=== PATIENT | female | born 1985 | race Two or more races ===

== ENCOUNTER → 2016-03-03 | Day surgery (SDC) | payer OTHER ==
[~2016-03-03] VITALS: Ht 121.9 cm; Wt 44.0 kg
[~2016-03-03] MED LIST: ACETAMINOPHEN 1000 MG/100 ML VIAL IV ONE; ACETAMINOPHEN 325MG/HYDROcodone 7.5MG/15ML UDC GT PRN; ALBU0.63 NEB; ATEN25TA JT; ATEN25TA PO; BACL10TA GT; BACL10TA JT; BACT800T5 PO; BELLADONNA ALKALOIDS/OPIUM 60 MG SUPP ONE; CLON1TAB GT; CLON1TAB JT; DEXAMETHASONE SOD PHOS 4 MG/ML VIAL ONE; DICLOFENAC SODIUM 37.5 MG/ML VIAL IV PUSH ONE; DO NOT ADM ANY ANTICOAGULANT DRUGS XX PRN; FAMOTIDINE 20 MG/2 ML VIAL ONE; INFE50IN2 IM; INSULIN HUMAN REGULAR 1,000 UNITS/10 ML VIAL SQ PRN; IOHEXOL 350 MG/ML 50 ML BTL (for RAD DIAG) OTHER ONE; LACTATED RINGER'S 1000 ML INJ 1,000 ML IV ONE; LACTATED RINGER'S 1000 ML IV SCH; LEVA500T PO; METO10TA GT; METO10TA JT; METO50TA GT; METO5SOL J-TUBE; METOPROLOL TARTRATE 25 MG TAB PO PRN; MIDAZOLAM HCL 2 MG/2 ML VIAL ONE; MIRA33504 GT; MIRA33504 JT; MORPHINE SULFATE 4 MG/ML INJ IV PUSH PRN; ONDANSETRON HCL 4 MG/2 ML VIAL IV PUSH ONE; ONDANSETRON HCL 4 MG/2 ML VIAL IV PUSH PRN; PERC5TAB12 PO; PHEN-414 GT; PHEN-414 JT; PROPOFOL 200 MG/20 ML AMP IV ONE; RANI150C GT; RANI150T JT; SODIUM CHLORID 0.9% 500 ML IV SCH; SUGAMMADEX SODIUM 200 MG/2 ML VIAL IV PUSH ONE; VITA10004 GT; ceFAZolin 1,000 MG/NS 100 ML IV SCH; ePHEDrine/NS 50 MG/5 ML SYR IV ONE
[2016-03-03 09:00] VITALS: BP 98/66; PULSE 86; RESP 18; TEMP 97.7; O2SAT 96
[2016-03-03 09:26] LABS: BASOPHIL % 0.2 % (0.0-2.0); EOSINOPHIL # 0.2 TH/MM3 (0-0.4); EOSINOPHIL % 2.8 % (0.0-4.0); HEMATOCRIT 42.5 % (35.0-46.0); HEMO FLAGS DIFF FINAL; LYMPH % 20.8 % (9.0-44.0); LYMPHOCYTE # 1.3 TH/MM3 (1.0-4.8); MEAN CELL VOLUME 85.5 FL (80.0-100.0); MEAN CORPUSCULAR HEMOGLOBIN 28.3 PG (27.0-34.0); MEAN CORPUSCULAR HGB CONC 33.1 % (32.0-36.0); MONO % 10.7 % (0.0-8.0); NEUT % 65.5 % (16.0-70.0); PLATELET COUNT 137 TH/MM3 (150-450); RED BLOOD COUNT 4.97 MIL/MM3 (4.00-5.30); RED CELL DISTRIBUTION WIDTH 14.8 % (11.6-17.2); WHITE BLOOD COUNT 6.1 TH/MM3 (4.0-11.0)
[2016-03-03 09:49] LABS: BICARBONATE 22.5 MEQ/L (21.0-32.0); POTASSIUM 4.2 MEQ/L (3.5-5.1)
[2016-03-03 15:15] VITALS: BP 108/76; PULSE 97; RESP 18; TEMP 98.4; O2SAT 96
--- NOTE | 2016-03-09 06:39 | MP ---
cc: MADISON WINTERS DATE OF SURGERY March 03, 2016 PREOPERATIVE DIAGNOSIS Bilateral renal calculi with right ureteral calculi. POSTOPERATIVE DIAGNOSIS Bilateral renal calculi with right ureteral calculi. PROCEDURE Cystoscopy, right ureteroscopy with laser lithotripsy, stone extraction, bilateral double-J stent insertion and removal of right nephrostomy tube. SURGEON MD Lance ANESTHESIA General endotracheal tube FLUIDS 1 liter crystalloid. ESTIMATED BLOOD LOSS No blood loss. COMPLICATIONS No complications. SPECIMEN Multiple stone fragments were retrieved from both from both the right ureter and the right kidney. CONDITION She tolerated the procedure well. She was awoken and transferred to the recovery room in stable condition. INDICATIONS Ms. Titus Yarbrough is a 30-year-old female with a history of cerebral palsy. She had bilateral renal calculi and has undergone multiple ESWL therapies in the past to try to relieve her stone burden. She required percutaneous right nephrostomy tube with nephroureteral stent in place and that has been in for sometime to alleviate her obstruction. She has severe contractures of her lower extremities and this is the reason for attempting left extracorporeal shock wave therapy first prior to proceeding with ureteroscopy. The risk and benefits were discussed with the family and they were willing to proceed. PROCEDURE The patient was brought to the operating room, identified by myself as Titus Yarbrough. She was placed in the dorsal lithotomy position. She was prepped and draped in the usual sterile fashion, received preprocedure antibiotics and general endotracheal tube anesthesia was administered. A 22-Kosovan cystoscope was inserted in the bladder. Multiple stone fragments were seen in the bladder. Just prior to this the right percutaneous nephrostomy tube was removed. The right ureteral orifice was identified and an 0.035 Sensor wire was passed up the right ureter with a good curl in the kidney and the wire was left in place. The Storz flexible ureteroscope was then passed into the ureter and in the distal ureter multiple stone fragments were identified. Using a 200 micron laser fiber the stone fragments were then fragmented up and retrieved with a nitinol basket. Once that was done, up in the proximal ureter near the UPJ there were multiple stone fragments identified. These were lasered with the 200 micron laser fiber setting of 8 and 800. Good fragmentation again was performed and then using a nitinol basket the stone fragments were then removed from there. Further stone fragments were then visualized up in the kidney and some lasering was done, but then using a nitinol basket these stone fragments were then removed entirely. Once the majority of all the stone fractional were removed from the right side, the wire was left in place and the cystoscope was back-loaded over the wire. A 6-Kosovan, 20-cm right double-J stent was then passed up the right ureter with a good curl in the kidney and a good curl in the bladder and the wire was removed. The bladder was evacuated. At this time a decision was made to place a left ureteral stent as ureteroscopy may be required in the future and having the stent in place will allow for ureteral dilatation. The 0.035 Sensor wire was then passed into the left ureteral orifice and up the left kidney. A 20-cm, 6-Kosovan left double-J stent was left in good position at this time. The bladder was evacuated. She was awoken and transferred to Recovery in stable condition. She will follow up in the office in two weeks and get a KUB x-ray prior. We will either proceed with a repeat extracorporeal shock wave lithotripsy or will proceed with ureteroscopy and will discuss this with the family at the time. Madison PORRAS /1:20 PM /6:26 AM
== END | disposition home or self-care (01) ==
LOC: HSDC 08:19
PROVIDERS: ATTEND Urology
DX: N20.2 Calculus of kidney with calculus of ureter (principal); G80.8 Other cerebral palsy; I10 Essential (primary) hypertension; J45.909 Unspecified asthma, uncomplicated; D64.9 Anemia, unspecified
CPT/HCPCS: 00918; 52332; 52356; 74420; 80048; 82370; 85025; 88300; C1769; C2617; J0131; J0690; J1100; J1130; J2250; J2405; J3010; J7120; Q9967

== ENCOUNTER → 2016-04-07 | Day surgery (SDC) | payer OTHER ==
[~2016-04-07] MED LIST changes: -ACETAMINOPHEN 1000 MG/100 ML VIAL IV ONE; -ACETAMINOPHEN 325MG/HYDROcodone 7.5MG/15ML UDC GT PRN; +ACETAMINOPHEN/HYDROcodone 325 MG/5 MG TAB PEG PRN; -ATEN25TA PO; -BACL10TA GT; -BELLADONNA ALKALOIDS/OPIUM 60 MG SUPP ONE; -CLON1TAB GT; -DEXAMETHASONE SOD PHOS 4 MG/ML VIAL ONE; -DICLOFENAC SODIUM 37.5 MG/ML VIAL IV PUSH ONE; -FAMOTIDINE 20 MG/2 ML VIAL ONE; -IOHEXOL 350 MG/ML 50 ML BTL (for RAD DIAG) OTHER ONE; -LACTATED RINGER'S 1000 ML INJ 1,000 ML IV ONE; -METO10TA GT; -METO50TA GT; -MIDAZOLAM HCL 2 MG/2 ML VIAL ONE; +MORPHINE SULFATE 4 MG/ML INJ IV PRN; -MORPHINE SULFATE 4 MG/ML INJ IV PUSH PRN; -ONDANSETRON HCL 4 MG/2 ML VIAL IV PUSH ONE; -PHEN-414 GT; +PHENYLEPH/NS 1000 MCG/10 ML SYR IV ONE; -RANI150C GT; -SUGAMMADEX SODIUM 200 MG/2 ML VIAL IV PUSH ONE; -ePHEDrine/NS 50 MG/5 ML SYR IV ONE
[2016-04-07 06:59] VITALS: BP 98/67; PULSE 80; RESP 16; TEMP 97.9; O2SAT 97
[2016-04-07 07:15] LABS: AUTOMATED NEUTROPHIL # 2.9 TH/MM3 (1.8-7.7); BASOPHIL % 0.3 % (0.0-2.0); EOSINOPHIL # 0.2 TH/MM3 (0-0.4); EOSINOPHIL % 4.2 % (0.0-4.0); LYMPH % 23.9 % (9.0-44.0); LYMPHOCYTE # 1.1 TH/MM3 (1.0-4.8); MEAN CORPUSCULAR HEMOGLOBIN 28.9 PG (27.0-34.0); MEAN CORPUSCULAR HGB CONC 33.6 % (32.0-36.0); MONO % 10.8 % (0.0-8.0); NEUT % 60.8 % (16.0-70.0); PLATELET COUNT 128 TH/MM3 (150-450); RED BLOOD COUNT 4.54 MIL/MM3 (4.00-5.30); RED CELL DISTRIBUTION WIDTH 15.3 % (11.6-17.2); WHITE BLOOD COUNT 4.8 TH/MM3 (4.0-11.0)
[2016-04-07 07:30] LABS: HEMO FLAGS AUTO DIFF
[2016-04-07 08:13] LABS: PLATELET ESTIMATE SMEAR LOW (NORMAL); PLATELET MORPHOLOGY ENLARGED (NORMAL); SCAN/DIFF AUTO DIFF CONFIRMED
--- NOTE | 2016-04-07 10:34 | PD.OP ---
Operative Report Date of Surgery: Apr 07, 2016 Preoperative Diagnosis: Retained right ureteral stent; Left renal calculi Postoperative Diagnosis: Same Procedure: Cystoscopy; removal of right double-J stent Left ureteroscopy laser lithotripsy; stone extraction with left double-J stent change Surgeon: Tc Lucas Swimming Pool Plasterer Helper(s): Azeb Resident Surgeon: None Operation and Findings: Patient was brought to the operative and therefore myself as Titus Aguiar. She is placed in the dorsal lithotomy position, prepped and draped in usual sterile fashion, received preprocedure antibiotic, general endotracheal tube anesthesia was administered. 22 Cymraes cystoscope was inserted into the bladder. Esteves cystoscopy did not reveal any abnormalities. The right ureteral stent was identified, using the alligator grasper, the stent was removed. The left ureteral stent was then identified. Using the alligator grasper, the stent was brought to the urethral meatus. An 0.35 sensor wire was passed through the stent with a good curl in the kidney and the stent was removed; leaving the wire in place. A navigator ureteral access sheath was then passed over the wire and left in good position. The wire was then removed. The flexible Storz ureteroscope was then passed through the ureteral access sheath. The stone was identified within the midpole of the kidney. A 200 laser fiber was then used to fragment up the stone in the setting of 8 and 800. Good fragmentation of the stone was visualized. Due to bleeding however, visualization was difficult. I was able to remove some of the stone fragments but there are still residual stone fragments present. Clot was filling the collecting system and obscuring the visualization of the stones. Decision is made then to terminate the procedure. A wire was placed through the ureteral access sheath; and the ureteral access sheath was then removed. The cystoscope was backloaded over the wire and a 20 cm 6 Cymraes left double-J stent was left in good position. The bladder was evacuated she was transferred currently in stable condition. She'll follow-up in the office in 2 weeks and obtain a KUB x-ray prior. At that time, we will see if there are any residuals fragments still within the left kidney and determine if further treatment is necessary. Tc Lucas DO Apr 07, 2016 10:34
[2016-04-07 11:12] VITALS: BP_DIAS 73
[2016-04-07 12:28] VITALS: PULSE 18; RESP 18; TEMP 98.2; O2SAT 94
== END | disposition home or self-care (01) ==
LOC: HSDC 06:09
PROVIDERS: ATTEND Urology
DX: N20.2 Calculus of kidney with calculus of ureter (principal); J45.909 Unspecified asthma, uncomplicated
CPT/HCPCS: 00918; 52356; 82370; 85025; 88300; C1769; C2617; J0690; J2370; J3010; J7120

== ENCOUNTER 2016-05-16 12:27 | Emergency (ER) | payer OTHER ==
[~2016-05-16] VITALS: Ht 152.4 cm; Wt 43.5 kg
[~2016-05-16 12:27] MED LIST changes: -ACETAMINOPHEN/HYDROcodone 325 MG/5 MG TAB PEG PRN; -DO NOT ADM ANY ANTICOAGULANT DRUGS XX PRN; -INFE50IN2 IM; -INSULIN HUMAN REGULAR 1,000 UNITS/10 ML VIAL SQ PRN; -LACTATED RINGER'S 1000 ML IV SCH; -METO5SOL J-TUBE; -METOPROLOL TARTRATE 25 MG TAB PO PRN; -MIRA33504 GT; -MORPHINE SULFATE 4 MG/ML INJ IV PRN; -ONDANSETRON HCL 4 MG/2 ML VIAL IV PUSH PRN; -PHENYLEPH/NS 1000 MCG/10 ML SYR IV ONE; -PROPOFOL 200 MG/20 ML AMP IV ONE; -SODIUM CHLORID 0.9% 500 ML IV SCH; -ceFAZolin 1,000 MG/NS 100 ML IV SCH
[2016-05-16 12:29] VITALS: BP 93/51; PULSE 98; RESP 15; TEMP 98.2; O2SAT 98
[2016-05-16 13:23] VITALS: BP 89/60; PULSE 74; RESP 14; O2SAT 95
--- NOTE | 2016-05-16 13:23 | PD ---
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 Patient mother notes that she is been having to almost aneurysmal type dilatations in the tube where the tube is in ballooning out. It has not yet been leaking but mother is concerned. Patient has been tolerating 24 7 tube feeds without difficulty. PFSH Past Medical History Cancer: No Cardiovascular Problems: Yes (TACHYCARDIA) Diabetes: No Endocrine: No Genitourinary: Yes (INCONTINENT) Hepatitis: No Hiatal Hernia: No Immune Disorder: No Musculoskeletal: Yes (HAS NEVER WALKED) Neurologic: Yes (CEREBRAL PALSY, SEIZURES) Psychiatric: No Reproductive: No Respiratory: Yes (USES NEBULIZER) Immunizations Current: No Thyroid Disease: No ?: Not Past Surgical History Abdominal Surgery: Yes (CHOLECYSTECTOMY) AICD: No Body Medical Devices: FEEDING TUBE, NEPHROSTOMY TUBE Cardiac Surgery: No Ear Surgery: No Endocrine Surgery: No Eye Surgery: No Genitourinary Surgery: No Gynecologic Surgery: No Joint Replacement: No Oral Surgery: No Pacemaker: No Thoracic Surgery: Yes (RIGHT BREAST) Social History Tobacco Use: No Substance Use: No Allergies-Medications (Allergen,Severity, Reaction): Coded Allergies: Latex (Verified Allergy, Severe, Hives, 05/16/16) Vancomycin (Verified Allergy, Severe, REDNESS AND RASH, 05/16/16) Reported Meds & Prescriptions Reported Meds & Active Scripts Active Bactrim DS (Sulfamethoxazole-Trimethoprim) 800-160 Mg Tab 1 Tab PO BID Miralax Powder (Polyethylene Glycol 3350 Powder) 17 Gm Powd 17 Gm JT DAILY PRN Mix and dissolve one measuring cap-ful (17 grams) in water or juice. Baclofen 10 Mg Tab 15 Mg JT BID PRN Levaquin (Levofloxacin) 500 Mg Tab 500 Mg PO DAILY Atenolol 25 Mg Tab 12.5 Mg JT DAILY Phenobarbital 32.4 Mg Tab 32.4 Mg JT DIRECTED 1 tablet AT 7:00 A.M. 1.5 (one and half) tablet AT 3:00 P.M. 2 tablet AT 11:00 P.M. Metoclopramide (Metoclopramide HCl) 10 Mg Tab 10 Mg JT BID Clonazepam 1 Mg Tab 0.5 Tab JT DIRECTED Give 0.5 tab at 6AM, Noon, 6PM, and Midnight Ranitidine (Ranitidine HCl) 150 Mg Tab 150 Mg JT BID PRN Reported Albuterol Neb (Albuterol Sulfate) 0.63 Mg/3 Ml Neb 0.63 Mg NEB Q6HR NEB Vitamin B12 Tr (Cyanocobalamin) 1,000 Mcg Tab 1,000 Mcg GT EVERY OTHER MONTH Review of Systems Except as stated in HPI: all other systems reviewed are Neg Physical Exam Narrative GENERAL: Developmentally delayed female in no acute distress SKIN: Focused skin assessment warm/dry. HEAD: Normocephalic. EYES: No scleral icterus. No injection or drainage. ENT: Mucous membranes pink and moist. CARDIOVASCULAR: Regular rate and rhythm. RESPIRATORY: No accessory muscle use. GASTROINTESTINAL: Abdomen soft, non-tender, nondistended. GJ-tube insight. When the J-tube port is flushed there are 2 aneurysmal type dilatations of the tube but no leaking MUSCULOSKELETAL: Chronic contractures NEUROLOGICAL: Awake and alert. Normal speech. PSYCHIATRIC: Appropriate mood and affect; insight and judgment normal. Data Data Last Documented VS Vital Signs Date Time Temp Pulse Resp B/P Pulse Ox O2 Delivery O2 Flow Rate FiO2 05/16/16 13:23 74 14 89/60 95 Room Air 05/16/16 12:29 98.2 Orders Invasive Rad Dept Consult (05/16/16 ) Diet Progression Instructions (05/16/16 14:45) Vital Signs (Adult) Q15MX2,Q30MX2,Q1HX1,Q4H (05/16/16 14:45) ^ Wound Care (05/16/16 14:45) ^ Wound Care (05/16/16 14:45) ^ Flush Tube (05/16/16 14:45) ^ Crush Medications (05/16/16 14:45) ^ Jejunal Tube (05/16/16 14:45) Notify Dr: Other (05/16/16 14:45) Notify Dr: Temperature (05/16/16 14:45) MDM Medical Decision Making Medical Screen Exam Complete: Yes Emergency Medical Condition: Yes Medical Record Reviewed: Yes Differential Diagnosis 31-year-old developmentally delayed female here with complaint of G J-tube problem. There are 2 areas of aneurysmal dilatation when the J-tube port is flushed, weakening of the tube. It is no leaking yet, but it is only a matter of time before this tube malfunctions. Narrative Course Interventional radiology was consulted and her tube was replaced. Diagnosis Primary Impression: Gastrostomy tube dysfunction Referrals: Primary Care Physician as needed Additional Instructions: Continue tube feeds as prescribed. Med/Other Pt SpecificInfo: No Change to Meds Disposition: 01 DISCHARGE HOME Condition: Stable Kalli Rico MD May 16, 2016 13:23
--- NOTE | 2016-05-16 14:48 | PD.RAD ---
Post Procedure Progress Note Pre Procedure Diagnosis: (1) Quadriplegic cerebral palsy (2) Gastrostomy tube dysfunction Post Procedure Diagnosis: (1) Quadriplegic cerebral palsy (2) Gastrostomy tube dysfunction Procedure Date: May 16, 2016 Supervising Radiologist: Tal Abreu Anesthesia: Local Plan of Activity Patient to Unit: Other Patient Condition: Fair See PACS Report for procedural detail/treatment Feeding Tube Gastro/Jejunostomy Replacement Kazakh: 22 Tal Abreu MD May 16, 2016 14:48
[2016-05-16] MEDS ORDERED: IOHEXOL 350 MG/ML 50 ML BTL (for RAD DIAG) G-TUBE ONE (14:58)
--- NOTE | 2016-05-16 15:25 | RADRPT ---
EXAM DATE/TIME: 05/16/2016 14:20 [facility] COMPARISON: CHANGE OF GJ-TUBE CATHETER, December 24, 2015, 9:05. INDICATIONS : Patient presents with non functioning gastrojejunal tube in need of replacement for nutrition. MEDICAL HISTORY : Cerebral palsy Aspiration pneumonia Hx of seizures HTN Asthma Mental retardation Cholelithiasis SURGICAL HISTORY : Isatu GJ tube placement ENCOUNTER: Subsequent ACUITY: 1 year PAIN SCORE: 0/10 LOCATION: N/A FLUORO TIME: 1.9 minutes IMAGE SERIES: 2 CONTRAST: 10 cc Omnipaque (iohexol) 350 DEVICE(S): 1.) 22 Mozambican Transgastric tube PROCEDURE : 1. Fluoroscopically guided gastrojejunostomy tube exchange. 2. Conscious sedation with continuous EKG and oximetry monitoring. The risks, benefits and alternatives to the procedure were explained and verbal and written consent w as obtained. The site was prepped in sterile fashion. Full sterile technique was used, including ca p, mask, sterile gloves and gown and a large sterile sheet. Hand hygiene and 2% chlorhexidine and/or betadine/alcohol prep was utilized per protocol for cutaneous antisepsis. The skin and subcutaneous tissues were infiltrated with local anesthetic solution. With fluoroscopic guidance a guidewire was passed through the previous gastrojejunostomy tube and a f resh tube was placed over the guidewire. The balloon was inflated with appropriate volume of saline. Injection of positive contrast demonstrates good position of the gastric and jejunal lumens of the tube. Conscious sedation was performed with the prescribed dosages and duration as above in the presence of an independent trained radiology nurse to assist in the monitoring of the patient. EKG and oximetry remained stable throughout the procedure. The patient tolerated the procedure well and there were n o complications. The patient was sent to post anesthesia recovery in stable condition. CONCLUSION: Uncomplicated gastrojejunostomy tube exchange as above. Tal Abreu MD on May 16, 2016 at 15:23 Board Certified Radiologist. This report was verified electronically.
[2016-06-06] MEDS ORDERED: INFE50IN2 IM (13:13)
[2016-06-07] MEDS ORDERED: METO5SOL J-TUBE (09:16)
[2016-06-07] MEDS ORDERED: RANI150T JT (09:23)
[2016-06-07] MEDS ORDERED: CLON1TAB JT (09:23)
[2016-06-07] MEDS ORDERED: PHEN-414 JT (09:23)
== END 2016-05-16 15:03 | disposition home or self-care (01) ==
LOC: NEPD 12:27
DX: T85.598A Other mechanical complication of other gastrointestinal prosthetic devices, implants and grafts, initial encounter (principal); G80.9 Cerebral palsy, unspecified; R56.9 Unspecified convulsions; M62.49 Contracture of muscle, multiple sites
CPT/HCPCS: 49452; 99282; C1769; C1874; Q9967

== ENCOUNTER → 2016-05-19 | Day surgery (SDC) | payer OTHER ==
[~2016-05-19] VITALS: Ht 152.4 cm; Wt 44.0 kg
[~2016-05-19] MED LIST changes: +AMPICILLIN 1 GM/NS 100 ML IV SCH; -BACT800T5 PO; +BELLADONNA ALKALOIDS/OPIUM 60 MG SUPP RECTAL ONE; +CHLORHEXIDINE GLUCONATE 2 % 1 PACK (2 CLOTHS) TOPICAL PRN; +DO NOT ADM ANY ANTICOAGULANT DRUGS PRN; +FUROSEMIDE 100 MG/10 ML VIAL ONE; +INFE50IN2 IM; +INSULIN HUMAN REGULAR 1,000 UNITS/10 ML VIAL SQ PRN; +IOHEXOL 350 MG/ML 50 ML BTL (for RAD DIAG) ONE; +LACTATED RINGER'S 1000 ML INJ 1,000 ML IV ONE; +LACTATED RINGER'S 1000 ML IV PRN; +METO5SOL J-TUBE; +METOPROLOL TARTRATE 25 MG TAB PO PRN; +NEOSTIGMINE 3 MG/3 ML SYR IV ONE; +ONDANSETRON HCL 4 MG/2 ML VIAL IV PUSH ONE; +ONDANSETRON HCL 4 MG/2 ML VIAL IV PUSH PRN; +PHENYLEPH/NS 1000 MCG/10 ML SYR IV ONE; +POVIDONE IODINE 5% (ANTISEPSIS KIT) 4 APPLICATIONS EACH NARE PRN; +PROPOFOL 200 MG/20 ML AMP IV ONE; +SODIUM CHLORID 0.9% 500 ML IV PRN; +fentaNYL CITRATE 250 MCG/5 ML AMP ONE
[2016-05-19 07:19] VITALS: BP 107/73; PULSE 82; RESP 16; TEMP 97.4; O2SAT 98
[2016-05-19 07:44] LABS: AUTOMATED NEUTROPHIL # 4.5 TH/MM3 (1.8-7.7); BASOPHIL % 0.3 % (0.0-2.0); EOSINOPHIL # 0.2 TH/MM3 (0-0.4); EOSINOPHIL % 2.6 % (0.0-4.0); HEMATOCRIT 41.1 % (35.0-46.0); HEMO FLAGS DIFF FINAL; LYMPH % 17.6 % (9.0-44.0); LYMPHOCYTE # 1.1 TH/MM3 (1.0-4.8); MEAN CELL VOLUME 87.4 FL (80.0-100.0); MEAN CORPUSCULAR HEMOGLOBIN 28.9 PG (27.0-34.0); MONO % 9.2 % (0.0-8.0); NEUT % 70.3 % (16.0-70.0); PLATELET COUNT 147 TH/MM3 (150-450); RED CELL DISTRIBUTION WIDTH 14.5 % (11.6-17.2); WHITE BLOOD COUNT 6.5 TH/MM3 (4.0-11.0)
--- NOTE | 2016-05-19 10:31 | PD.OP ---
Operative Report Date of Surgery: May 19, 2016 Preoperative Diagnosis: Left renal calculi Postoperative Diagnosis: Same Procedure: Cystoscopy, left ureteroscopy, stone extraction with left double-J stent exchange. Anesthesia: Gen. LMA Surgeon: Tc Lucas Chief Gauger(s): None Resident Surgeon: None Operation and Findings: Patient was brought to the cystoscopy suite and identified by myself as Titus Aguiar. She is placed in dorsal lithotomy position, prepped and draped in usual sterile fashion, received preprocedure antibiotics, and general LMA anesthesia was administered. A 22 Guatemalan cystoscope was inserted in the bladder. The left ureteral stent was identified and using the alligator grasper was brought to the urethral meatus. 35 sensor wire was then passed through the stent up into the kidney and the stent was then removed. A navigator ureteral access sheath was then passed over the wire left in good position at the UPJ. The wire was removed. The [employer] flexible ureteroscope was then passed up through the ureteral access sheath and multiple stone fragments were identified. Using the Nitinol basket, multiple retrievals of stone fragments were removed from the left kidney. At the end of the procedure there was a few small fragments that were too small to be grasped with the nitinol basket. An 035 sensor wire was then passed through the ureteral access sheath and ureteral access sheath was removed. The cystoscope was backloaded and a 6 Guatemalan 20 cm left double-J stent was placed with a good curl in kidney and a good curl in the bladder. String was then taped to the lower abdominal wall. She'll follow-up on Monday to undergo stent pull in the office. And in the future we will review her stone analysis. Tc Lucas DO May 19, 2016 10:31
[2016-05-19 13:08] VITALS: BP 112/63; PULSE 89; RESP 18; TEMP 98.4; O2SAT 95
== END | disposition home or self-care (01) ==
LOC: HSDC 06:51
PROVIDERS: ATTEND Urology
DX: N20.0 Calculus of kidney (principal)
CPT/HCPCS: 00910; 52332; 52352; 82370; 85025; 88300; C1726; C1769; C2617; J0290; J1940; J2370; J2405; J2710; J3010; J7120; Q9967

== ENCOUNTER 2016-05-27 12:56 | Day surgery (SDC) | payer OTHER ==
[~2016-05-27 12:56] MED LIST changes: -AMPICILLIN 1 GM/NS 100 ML IV SCH; -BELLADONNA ALKALOIDS/OPIUM 60 MG SUPP RECTAL ONE; -CHLORHEXIDINE GLUCONATE 2 % 1 PACK (2 CLOTHS) TOPICAL PRN; -DO NOT ADM ANY ANTICOAGULANT DRUGS PRN; -FUROSEMIDE 100 MG/10 ML VIAL ONE; -INFE50IN2 IM; -INSULIN HUMAN REGULAR 1,000 UNITS/10 ML VIAL SQ PRN; -IOHEXOL 350 MG/ML 50 ML BTL (for RAD DIAG) ONE; -LACTATED RINGER'S 1000 ML INJ 1,000 ML IV ONE; -LACTATED RINGER'S 1000 ML IV PRN; -LEVA500T PO; -METO5SOL J-TUBE; -METOPROLOL TARTRATE 25 MG TAB PO PRN; -NEOSTIGMINE 3 MG/3 ML SYR IV ONE; -ONDANSETRON HCL 4 MG/2 ML VIAL IV PUSH ONE; -ONDANSETRON HCL 4 MG/2 ML VIAL IV PUSH PRN; -PHENYLEPH/NS 1000 MCG/10 ML SYR IV ONE; -POVIDONE IODINE 5% (ANTISEPSIS KIT) 4 APPLICATIONS EACH NARE PRN; -PROPOFOL 200 MG/20 ML AMP IV ONE; -SODIUM CHLORID 0.9% 500 ML IV PRN; -fentaNYL CITRATE 250 MCG/5 ML AMP ONE
--- NOTE | 2016-05-27 15:49 | RADRPT ---
EXAM DATE/TIME: 05/27/2016 14:20 [facility] COMPARISON: No previous studies available for comparison. INDICATIONS : Right ilipsoas chemo denervation. MEDICAL HISTORY : Renal calculi. Osteoarthritis. Cerebral palsy. Seizures. Tachycardia. Asthma. Acid reflux. Gingivit is. Incontinence. Anemia. Anxiety. SURGICAL HISTORY : Cholecystectomy. Right breast biopsy. G/J tube. Right nephrostomy tube. EWSL. ENCOUNTER: Initial ACUITY: 1 day PAIN SCORE: Nonresponsive. LOCATION: Right leg. AREA EVALUATED: Right iliopsoas. FINDINGS: Patient has significant contractures. Ultrasound was used to localize the right iliopsoas as in this contracted patient for Botox injection. Under direct ultrasound visualization needle was placed in the iliopsoas and Botox injected. CONCLUSION: Uncomplicated right iliopsoas Botox injection. Jason Moyer MD FACR on May 27, 2016 at 15:47 Board Certified Radiologist. This report was verified electronically.
[2016-06-06] MEDS ORDERED: INFE50IN2 IM (13:13)
[2016-06-07] MEDS ORDERED: METO5SOL J-TUBE (09:16)
[2016-06-07] MEDS ORDERED: PHEN-414 JT (09:23)
[2016-06-07] MEDS ORDERED: RANI150T JT (09:23)
[2016-06-07] MEDS ORDERED: CLON1TAB JT (09:23)
== END 2016-05-27 16:08 | disposition home or self-care (01) ==
LOC: HRAD 12:56 → HRIP 12:58 → HRAD 16:08
PROVIDERS: ATTEND Physical Medicine & Rehabilitation
DX: M24.551 Contracture, right hip (principal); G80.9 Cerebral palsy, unspecified; J45.909 Unspecified asthma, uncomplicated; K21.9 Gastro-esophageal reflux disease without esophagitis; M19.90 Unspecified osteoarthritis, unspecified site; F41.9 Anxiety disorder, unspecified; Z87.442 Personal history of urinary calculi; Z90.49 Acquired absence of other specified parts of digestive tract
CPT/HCPCS: 20550; 76942; J0585

== ENCOUNTER → 2016-12-21 | Day surgery (SDC) | payer OTHER ==
[~2016-12-21] VITALS: Ht 127 cm; Wt 298.0 kg
[~2016-12-21] MED LIST changes: +*RESP: ALBUTEROL 2.5 MG/3 ML NEB (PRN) PERIprocedural Use ONLY NEB ONE; +CHLORHEXIDINE GLUCONATE 2 % 1 PACK (2 CLOTHS) TOPICAL PRN; +DEXAMETHASONE SOD PHOS 4 MG/ML VIAL IV ONE; +DO NOT ADM ANY ANTICOAGULANT DRUGS PRN; +DULC10SU3 RECTAL; +INFE50IN2 IM; +INSULIN HUMAN REGULAR 1,000 UNITS/10 ML VIAL SQ PRN; +LACT10SO PO; +LACTATED RINGER'S 1000 ML IV PRN; +LEVO500T8 PO; -METO10TA JT; +METO5SOL J-TUBE; +METOPROLOL TARTRATE 25 MG TAB PO PRN; -MIRA33504 JT; +MORPHINE SULFATE 2 MG/ML INJ IV PRN; +ONDANSETRON HCL 4 MG/2 ML VIAL IV PUSH ONE; +ONDANSETRON HCL 4 MG/2 ML VIAL IV PUSH PRN; +PHEN-414 J-TUBE; -PHEN-414 JT; +PHENYLEPH/NS 1000 MCG/10 ML SYR IV ONE; +POVIDONE IODINE 5% (ANTISEPSIS KIT) 4 APPLICATIONS EACH NARE PRN; +PROPOFOL 200 MG/20 ML AMP IV ONE; +RESP: ALBUTEROL 2.5 MG/3 ML NEB (SCH) INH ONE; +SODIUM CHLORID 0.9% 500 ML IV PRN; +ceFAZolin 1,000 MG/NS 100 ML IV SCH; +ceFAZolin INJ 1,000 MG VIAL IV ONE; +oxyCODONE/ACETAMINOPHEN 5 MG/325 MG TAB G-TUBE PRN
--- NOTE | 2016-12-21 07:46 | RADRPT ---
EXAM DATE/TIME: 12/21/2016 07:23 [facility] COMPARISON: ABDOMEN KUB ONLY, January 27, 2016, 8:12. INDICATIONS : Pre-op lithotripsy. MEDICAL HISTORY : Renal calculi. Osteoarthritis. Cerebral palsy. Seizures. Tachycardia. Asthma. Acid reflux. Gingivitis . Incontinence. Anemia. Anxiety. SURGICAL HISTORY : Cholecystectomy. Right breast biopsy. G/J tube. Right nephrostomy tube. EWSL. ENCOUNTER: Initial ACUITY: 1 day PAIN SCORE: 10/10 LOCATION: abdomen FINDINGS: 2 supine portable frontal views of the abdomen show a gastrojejunostomy tube. There is a cylindrical radiopaque density directly adjacent to the tip of the jejunal port which was not seen on the prior s tudy. I'm uncertain etiology. This could either be within the stomach or colon. A significant stool b urden is seen. This obscures the renal contours bilaterally. No discernible renal calculi seen on the current exam. No dilated bowel loops. A scoliotic curvature seen. Lung bases are clear. CONCLUSION: Stool burden obscures the renal contours. I'm unable to identify any renal calculi. Lance Hopson Jr., MD on December 21, 2016 at 7:40 Board Certified Radiologist. This report was verified electronically.
--- NOTE | 2016-12-21 10:14 | PD.OP ---
Operative Report Date of Surgery: Dec 21, 2016 Preoperative Diagnosis: Left renal calculi Postoperative Diagnosis: Same Procedure: Left extracorporeal shockwave lithotripsy Anesthesia: GETA Surgeon: Tc Lucas Aerial Planting And Cultivation Manager(s): None Resident Surgeon: None Operation and Findings: 31-year-old female with history of cerebral palsy with recurrent nephrolithiasis. Patient was found to have multiple left renal calculi on recent CT scan performed at [facility]. Decision was made to bring the patient to the operating room and undergo left extracorpoeal shockwave lithotripsy. Risk and benefits were discussed with the family preoperatively and they're willing to proceed. Patient was brought to the operating room and identified by myself as Titus Patterson. She was placed on the operating room table in the supine position. She received general endotracheal tube anesthesia as well as preprocedure antibiotics. Under fluoroscopic imaging guidance, the stones were visualized within the left kidney. ESWL therapy commenced with good fragmentations of the stones within the left kidney visualized. Patient received a total 2500 shocks and the power level remained at level II. She tolerated the procedure well and was awoken and extubated and transferred to room stable condition. She will follow-up in the office in 2 weeks and obtain a CT scan prior to her visit. Tc Lucas DO Dec 21, 2016 10:14
[2016-12-21 12:02] VITALS: BP 120/77; PULSE 85; RESP 16; TEMP 98.4; O2SAT 100
== END | disposition home or self-care (01) ==
LOC: HSDC 07:07
PROVIDERS: ATTEND Urology
DX: N20.0 Calculus of kidney (principal); G80.9 Cerebral palsy, unspecified; K21.9 Gastro-esophageal reflux disease without esophagitis; J45.909 Unspecified asthma, uncomplicated; F41.9 Anxiety disorder, unspecified; Z87.442 Personal history of urinary calculi
CPT/HCPCS: 00873; 50590; 74000; J0690; J1100; J2370; J2405; J7613

== ENCOUNTER 2017-02-22 07:36 | Inpatient (IN) | payer OTHER ==
[~2017-02-22] VITALS: Ht 132.1 cm; Wt 39.0 kg
[2017-02-22] VITALS (13 sets, daily range): BP systolic 95–122; BP diastolic 56–75; PULSE 91–125; RESP 19–26; TEMP 98.3–98.4; O2SAT 93–100
[~2017-02-22 07:36] MED LIST changes: -*RESP: ALBUTEROL 2.5 MG/3 ML NEB (PRN) PERIprocedural Use ONLY NEB ONE; -ATEN25TA JT; +BACL10TA J-TUBE; -BACL10TA JT; -CHLORHEXIDINE GLUCONATE 2 % 1 PACK (2 CLOTHS) TOPICAL PRN; +CLON1TAB J-TUBE; -CLON1TAB JT; -DEXAMETHASONE SOD PHOS 4 MG/ML VIAL IV ONE; -DO NOT ADM ANY ANTICOAGULANT DRUGS PRN; -INFE50IN2 IM; -INSULIN HUMAN REGULAR 1,000 UNITS/10 ML VIAL SQ PRN; -LACTATED RINGER'S 1000 ML IV PRN; -LEVO500T8 PO; -METO5SOL J-TUBE; +METO5TAB J-TUBE; -METOPROLOL TARTRATE 25 MG TAB PO PRN; -MORPHINE SULFATE 2 MG/ML INJ IV PRN; -ONDANSETRON HCL 4 MG/2 ML VIAL IV PUSH ONE; -ONDANSETRON HCL 4 MG/2 ML VIAL IV PUSH PRN; -PHENYLEPH/NS 1000 MCG/10 ML SYR IV ONE; -POVIDONE IODINE 5% (ANTISEPSIS KIT) 4 APPLICATIONS EACH NARE PRN; +PROP10TA6 J-TUBE; -PROPOFOL 200 MG/20 ML AMP IV ONE; -RESP: ALBUTEROL 2.5 MG/3 ML NEB (SCH) INH ONE; -SODIUM CHLORID 0.9% 500 ML IV PRN; -ceFAZolin 1,000 MG/NS 100 ML IV SCH; -ceFAZolin INJ 1,000 MG VIAL IV ONE; -oxyCODONE/ACETAMINOPHEN 5 MG/325 MG TAB G-TUBE PRN
[2017-02-22] MEDS ORDERED: METOPROLOL TARTRATE 25 MG TAB PO PRN (08:30)
[2017-02-22] MEDS ORDERED: ceFAZolin 1,000 MG/NS 100 ML IV SCH ×2 (08:30)
[2017-02-22] MEDS ORDERED: POVIDONE IODINE 5% (ANTISEPSIS KIT) 4 APPLICATIONS EACH NARE PRN (08:30)
[2017-02-22] MEDS ORDERED: LACTATED RINGER'S 1000 ML IV PRN (08:30)
[2017-02-22] MEDS ORDERED: SODIUM CHLORID 0.9% 500 ML IV PRN (08:30)
[2017-02-22] MEDS ORDERED: CHLORHEXIDINE GLUCONATE 2 % 1 PACK (2 CLOTHS) TOPICAL PRN (08:30)
[2017-02-22 09:34] LABS: AUTOMATED NEUTROPHIL # 5.5 TH/MM3 (1.8-7.7); BASOPHIL % 0.2 % (0.0-2.0); EOSINOPHIL # 0.2 TH/MM3 (0-0.4); EOSINOPHIL % 2.5 % (0.0-4.0); HEMATOCRIT 40.5 % (35.0-46.0); HEMOGLOBIN 13.8 GM/DL (11.6-15.3); LYMPH % 14.4 % (9.0-44.0); LYMPHOCYTE # 1.1 TH/MM3 (1.0-4.8); MEAN CELL VOLUME 87.6 FL (80.0-100.0); MEAN CORPUSCULAR HEMOGLOBIN 29.8 PG (27.0-34.0); MEAN PLATELET VOLUME 11.6 FL (7.0-11.0); MONO % 8.6 % (0.0-8.0); MONOCYTE # 0.6 TH/MM3 (0-0.9); NEUT % 74.3 % (16.0-70.0); PLATELET COUNT 140 TH/MM3 (150-450); RED BLOOD COUNT 4.62 MIL/MM3 (4.00-5.30); RED CELL DISTRIBUTION WIDTH 14.3 % (11.6-17.2); WHITE BLOOD COUNT 7.4 TH/MM3 (4.0-11.0)
--- NOTE | 2017-02-22 09:55 | RADRPT ---
EXAM DATE/TIME: 02/22/2017 08:28 [facility] COMPARISON: No previous studies available for comparison. INDICATIONS : Pre-op lithotripsy. MEDICAL HISTORY : None. SURGICAL HISTORY : Jejunostomy feeding tube. ENCOUNTER: Initial ACUITY: 1 day PAIN SCORE: Non-responsive. LOCATION: Abdomen. FINDINGS: Single view of the abdomen demonstrates some stool throughout the colon. Patient has a G-tube in thomas ce. There is pronounced rightward lumbar scoliosis with contracted hips. CONCLUSION: Moderate dense stool throughout the colon. Emmanuel Gaxiola MD on February 22, 2017 at 9:47 Board Certified Radiologist. This report was verified electronically.
[2017-02-22] MEDS ORDERED: DO NOT ADM ANY ANTICOAGULANT DRUGS PRN (12:05)
--- NOTE | 2017-02-22 12:08 | PD.OP ---
Operative Report Date of Surgery: Feb 22, 2017 Preoperative Diagnosis: Left renal calculi with bladder debris versus bladder stone Postoperative Diagnosis: Same Procedure: Left extracorporeal shockwave lithotripsy and cystoscopy Anesthesia: Gen. LMA Surgeon: Tc Lucas Linoleum Layer Helper(s): None Resident Surgeon: None Operation and Findings: 31-year-old female with long history of stones and cerebral palsy. Patient found to have left renal calculus on recent CT scan and decision made to undergo left extraportal shockwave lithotripsy. She was also noted to have debris versus a bladder stone. The family also elected to undergo flexible cystoscopy with possible stone removal. Risk and benefits were discussed and the family was willing to proceed. The patient was brought to the operating room and placed in the supine position. She received preprocedure antibiotics, was prepped and draped in usual sterile fashion, and general LMA anesthesia was administered. Flexible cystoscope was inserted in the bladder and arroyo cystoscopy did not show any abnormalities other than debris and sludge. Attempt was made with a nitinol basket to remove any stone fragments but none were present. This was nothing but debris. A John catheter was inserted and the bladder was then gently irrigated with normal saline. Under ultrasound imaging guidance the stone was then visualized in the left lower pole. ESWL therapy commenced and she received 2500 shocks at moderate pallor due to her size. Good fragmentation was visualized. She tolerated the procedure well and then was awoken and transferred from stable condition. She'll follow-up in one month and obtain a CT scan prior to her visit. Tc Lucas DO Feb 22, 2017 12:08
[2017-02-22] MEDS ORDERED: *RESP: ALBUTEROL 2.5 MG/3 ML NEB (PRN) PERIprocedural Use ONLY NEB ONE ×2 (12:50→12:52)
[2017-02-22] MEDS ORDERED: MORPHINE SULFATE 2 MG/ML INJ IV PRN (13:15)
[2017-02-22] MEDS ORDERED: ACETAMINOPHEN 650 MG/20.3 ML UDC G-TUBE PRN (13:15)
[2017-02-22] MEDS ORDERED: ONDANSETRON HCL 4 MG/2 ML VIAL IV PUSH PRN ×2 (13:15→15:30)
--- NOTE | 2017-02-22 14:12 | RADRPT ---
EXAM DATE/TIME: 02/22/2017 13:36 [facility] COMPARISON: No previous studies available for comparison. INDICATIONS : Shortness of breath, low O2 stats. MEDICAL HISTORY : Renal calculi. Osteoarthritis. Cerebral palsy. Seizures. Tachycardia. Asthma. Acid reflux. Gingivitis . Incontinence. Anemia. Anxiety. SURGICAL HISTORY : Cholecystectomy. Right breast biopsy. G/J tube. Right nephrostomy tube. EWSL. ENCOUNTER: Subsequent ACUITY: 1 day PAIN SCORE: Non-responsive. LOCATION: Bilateral chest FINDINGS: Underinflated AP view of the chest demonstrates a normal-sized cardiac silhouette. No pleural effusio n, airspace consolidation, or pneumothorax is identified. The bones and soft tissues demonstrate no a cute finding. EKG lines overlie the patient. CONCLUSION: Underinflated examination. Otherwise, no acute cardiopulmonary abnormality is identified. Troy Smith MD on February 22, 2017 at 14:09 Board Certified Radiologist. This report was verified electronically.
[2017-02-22] MEDS ORDERED: RANITIDINE HCL SYRUP 150 MG/10 ML UDC PO SCH (14:30)
[2017-02-22] MEDS ORDERED: PROPRANOLOL HCL 10 MG TAB PO SCH (14:30)
[2017-02-22] MEDS ORDERED: PHENobarbital 32.4 MG TAB PO SCH (14:30)
[2017-02-22] MEDS ORDERED: SENNOSIDES 8.6 MG TAB PO PRN (15:30)
[2017-02-22] MEDS ORDERED: MISCELLANEOUS NURSING INFORMATION XX SCH (15:30)
[2017-02-22] MEDS ORDERED: BISACODYL 10 MG SUPP RECTAL PRN (15:30)
[2017-02-22] MEDS ORDERED: SODIUM CHLORIDE 0.9% FLUSH 10 ML FLUSH IV FLUSH PRN (15:30)
[2017-02-22] MEDS ORDERED: RESP: ALBUTEROL 2.5 MG/3 ML NEB (PRN) INH (15:30)
[2017-02-22] MEDS ORDERED: MAGNESIUM HYDROXIDE SUSP 30 ML CUP PO PRN (15:30)
[2017-02-22] MEDS ORDERED: CHLORHEXIDINE GLUCONATE 2 % 1 PACK (2 CLOTHS) TOP PRN (15:30)
[2017-02-22] MEDS ORDERED: LACTULOSE SYRUP 20 GM/30 ML CUP PO PRN (15:30)
--- NOTE | 2017-02-22 15:42 | PD.CONS ---
[facility] Service Critical Care Medicine Consult Requested By Dr. Lucas Reason for Consult Postoperative respiratory failure Primary Care Physician Vanda Mccann MD History of Present Illness This is a 31-year-old female. Date of admission 02/22/2017. Date of consultation 02/22/2017. Past medical she includes remote palsy, asthma, seizure disorder NOS, gastroesophageal reflux disease, normocytic anemia, chronic constipation, stage IV coccyx decubitus ulcer, urinary incontinence, and recurrent nephrolithiasis. She previously has had a right nephrostomy tube placed in ESWL bilaterally. She has had no complications with any previous surgical procedures. Today, patient had left extracorporeal shockwave lithotripsy and cystoscopy, results of the scan left renal calculi with bladder debris versus bladder stone. Patient had 300 cc crystalloid in. EBL was 0. 250 cc urine output. Patient had LMA #3 placed in the procedure. In PACU, upon removal of LMA patient desaturated with rhonchorous breath sounds. No stridor was appreciated per report. Not on my examination on evaluation patient is well. Follow-up chest x-ray revealed no acute cardiopulmonary findings. Patient was placed on noninvasive ventilation settings 12/8 at 100%. Oxygenating well post settings as above. Currently being weaned down. Due to her tenuous respiratory status we were asked to evaluate by Dr. Lucas for acute postoperative respiratory failure Review of Systems ROS Limitations: Clinical Condition, Speech Impaired Past Family Social History Allergies: Coded Allergies: latex (Verified Allergy, Severe, Hives, 02/22/17) vancomycin (Verified Allergy, Severe, REDNESS AND RASH, 02/22/17) Past Medical History Nephrolithiasis Cerebral palsy Hypertension Asthma Seizure disorder NOS Gastroesophageal reflux disease Chronic anemia Chronic constipation Urinary incontinence Osteoarthritis Stage IV coccyx decubitus ulcer Past Surgical History Right breast lumpectomy J-tube Right nephrostomy tube Cholecystectomy ESWL bilaterally Reported Medications Baclofen 10 mg by mouth twice a day Phenobarbital 32.4 mg 1 tablet at 0700, 1.5 tablets at 1500, 2 tablets at 2100 Clonazepam 0.5 mg by tube 4 times a day Propranolol 10 mg by tube twice a day Sulfisoxazole/trimethoprim 400/80 one tablet by tube twice a day Ranitidine 150 mg by tube twice a day Vitamin B12 1000 g every other month Oxycodone/acetaminophen 5/325 one tablet 36 hours when necessary pain Albuterol nebulizer scheduled every 6 hours Active Ordered Medications Reviewed in EMR Family History Mother with depression. Sister with asthma Social History No tobacco, alcohol or intravenous drug use Physical Exam Vital Signs Vital Signs Date Time Temp Pulse Resp B/P (MAP) Pulse Ox O2 Delivery O2 Flow Rate FiO2 02/22/17 13:55 96 100 02/22/17 12:32 Nasal Cannula 4 02/22/17 12:30 81 14 119/76 (90) 100 Nasal Cannula 4 02/22/17 12:15 65 12 119/72 (88) 99 Nasal Cannula 4 02/22/17 12:04 98.6 74 12 120/76 (91) 99 Nasal Cannula 4 02/22/17 08:52 97.1 72 16 103/67 (79) 98 Physical Exam GENERAL: 31-year-old female with cerebral palsy, currently on noninvasive ventilation SKIN: Warm and dry. Stage IV coccyx decubitus ulcer HEAD: Atraumatic. Normocephalic. EYES: Pupils equal and round about 3 mm bilaterally and reactive. No scleral icterus. No injection or drainage. ENT: No nasal bleeding or discharge. Mucous membranes pink and moist. There is no oropharyngeal edema. There is no tongue swelling NECK: Trachea midline. No JVD. CARDIOVASCULAR: Regular rate and rhythm. S1, S2. No S4 without murmur RESPIRATORY: Coarse rhonchorous breath sounds appreciated in the anterior lung fleming. No wheezing. No stridor is appreciated GASTROINTESTINAL: Abdomen soft, non-tender, nondistended. Hepatic and splenic margins not palpable. MUSCULOSKELETAL: Extremities without clubbing, cyanosis, or edema. No obvious deformities. NEUROLOGICAL: Awake and alert. No obvious cranial nerve deficits. Motor grossly within normal limits. Five out of 5 muscle strength in the arms and legs. Normal speech. PSYCHIATRIC: Appropriate mood and affect; insight and judgment normal. Laboratory Laboratory Tests Test 02/22/17 09:05 02/22/17 14:34 White Blood Count 7.4 Red Blood Count 4.62 Hemoglobin 13.8 Hematocrit 40.5 Mean Corpuscular Volume 87.6 Mean Corpuscular Hemoglobin 29.8 Mean Corpuscular Hemoglobin Concent 34.0 Red Cell Distribution Width 14.3 Platelet Count 140 Mean Platelet Volume 11.6 Neutrophils (%) (Auto) 74.3 Lymphocytes (%) (Auto) 14.4 Monocytes (%) (Auto) 8.6 Eosinophils (%) (Auto) 2.5 Basophils (%) (Auto) 0.2 Neutrophils # (Auto) 5.5 Lymphocytes # (Auto) 1.1 Monocytes # (Auto) 0.6 Eosinophils # (Auto) 0.2 Basophils # (Auto) 0.0 CBC Comment DIFF FINAL Differential Comment Blood Gas Puncture Site RT RADIAL Blood Gas Patient Temperature 98.6 Blood Gas HCO3 25 Blood Gas Base Excess -0.3 Blood Gas Oxygen Saturation 98 Arterial Blood pH 7.36 Arterial Blood Partial Pressure CO2 45 Arterial Blood Partial Pressure O2 257 Arterial Blood Oxygen Content 20.1 Arterial Blood Carboxyhemoglobin 0.7 Arterial Blood Methemoglobin 1.1 Blood Gas Hemoglobin 14.2 Oxygen Delivery Device BiPAP 01/13 RR10 Blood Gas Inspired Oxygen 100 Result Diagram: 02/22/17 0905 Imaging Last Impressions Abdomen X-Ray 02/22/17 0757 Signed Impressions: Service Date/Time: Wednesday, February 22, 2017 08:28 - CONCLUSION: Moderate dense stool throughout the colon. Emmanuel Gaxiola MD Chest X-Ray 02/22/17 0000 Signed Impressions: Service Date/Time: Wednesday, February 22, 2017 13:36 - CONCLUSION: Underinflated examination. Otherwise, no acute cardiopulmonary abnormality is identified. Troy Smith MD Septic Shock Reassessment Septic shock perfusion: reassessment completed Assessment and Plan Assessment and Plan Neuro/Psych: Cerebral palsy Seizure disorder NOS Acetaminophen liquid 650 mg by J-tube every 6 hours when necessary fever Continue phenobarbital 32.4 mg 1 tablet at 0700, 1.5 tablets at 1502 tablets at 2100 Continue clonazepam 0.5 mg by tube at midnight, 0600, noon and 1800 Seizure precautions CV: Hypertension Continue propranolol 10 mg by mouth twice a day Currently normal saline at 84 cc an hour. Resp: Acute postoperative respiratory failure Mild intermittent asthma Doesn't appear to be postobstructive pulmonary edema Currently on noninvasive ventilation 10/5 FiO2 50% Hopefully we'll attempt to wean off. No signs of obstruction/glossal edema upon evaluation of oropharynx. Lasix and albuterol/ipratropium aerosols every 6 hours with albuterol aerosols every 2 hours as needed dyspnea Start on low-dose methylprednisolone succinate 40 mg IV every 6 8 hours 1 dose of ethacrynic acid 25 mg by tube 1 GI: Moderate protein calorie malnutrition Gastroesophageal reflux disease Chronic constipation Patient is on Isosource 1.5 goal 70 cc an hour home Famotidine for GI prophylaxis. On ranitidine 150 mg as needed at home Docusate sodium/senna 1 tablet twice a day for bowel regimen : Recurrent nephrolithiasis status post left extracorporeal shockwave lithotripsy and cystoscopy Urinary incontinence No indication for John catheter Dr. Lucas/urology following Endo: Sliding-scale insulin if indicated to maintain euglycemia Renal: History of right nephrostomy tube Monitor urine output Accurate I's and O's Heme: History of anemia Thrombocytopenia Monitor CBC daily. Follow trends No indication for transfusion of blood products at this time ID: Currently on sulfamethoxazole, trimethaphan 400/80 one tablet twice a day Check UA FEN: Replace electrolytes as clinically indicated BMP/magnesium phosphorus all pending MSK: Stage IV coccyx ulcer Osteoarthritis Wound care evaluation and treat Access - Utilize peripheral IV. Central line if indicated Prophylaxis - GI - famotidine - DVT - SCD/heparin subcutaneous Level III consult Code Status Full code Discussed Condition With Parents specifically Linsey Manning. Dr. Lucas urology.. Care plan discussed and all questions answered. Paulo Cottrell MD Feb 22, 2017 15:42
[2017-02-22] MEDS ORDERED: PILL SPLITTER OTHER PRN (15:45)
[2017-02-22] MEDS ORDERED: ACETAMINOPHEN 650 MG/20.3 ML UDC J-TUBE PRN (16:15)
[2017-02-22] MEDS ORDERED: DEXTROSE 50% IN WATER 50 ML VIAL(D50) IV PUSH PRN (16:15)
[2017-02-22] MEDS ORDERED: GLUCAGON 1 MG/ML VIAL OTHER PRN (16:15)
[2017-02-22] MEDS: clonazePAM 0.5 MG TAB PO SCH ×2 (16:28→22:43)
[2017-02-22] MEDS: METOCLOPRAMIDE HCL 10 MG TAB J-TUBE SCH (16:28)
[2017-02-22] MEDS: BACLOFEN 10 MG TAB PO SCH (16:28)
[2017-02-22] MEDS: methylPREDNISolone SOD SUCC 40 MG/1 ML VIAL IV PUSH SCH ×2 (16:29→22:44)
[2017-02-22] MEDS: SODIUM CHLOR 0.9% 1000 ML INJ 1,000 ML IV SCH (16:29)
[2017-02-22] MEDS ORDERED: ETHACRYNIC ACID 25 MG TAB J-TUBE ONE (16:30)
[2017-02-22] MEDS: RESP: ALBUTEROL 2.5 MG/IPRATROPIUM 0.5 MG NEB (SCH) INH ×3 (16:34→23:59)
[2017-02-22] MEDS: ARTIFICIAL TEARS OPTH SOLN 15 ML BTL EACH EYE SCH (17:10)
[2017-02-22] MEDS: SULFAMETHOXAZOLE-TRIMETHOPRIM 400-80 MG TAB PO SCH (17:10)
[2017-02-22 17:17] LABS: BICARBONATE 26.5 MEQ/L (21.0-32.0); BICARBONATE 26.7 MEQ/L (21.0-32.0); CALCIUM 8.2 MG/DL (8.5-10.1); CALCIUM 8.3 MG/DL (8.5-10.1); CREATININE 0.22 MG/DL (0.50-1.00); CREATININE 0.25 MG/DL (0.50-1.00); MAGNESIUM 2.3 MG/DL (1.5-2.5); PHOSPHORUS 3.7 MG/DL (2.5-4.9)
[2017-02-22] MEDS ORDERED: METOCLOPRAMIDE HCL 10 MG TAB PO SCH (18:00)
[2017-02-22] MEDS: INSULIN NovoLIN REGULAR SUPPLEMENTAL SCALE SQ SCH (20:00)
[2017-02-22] MEDS: FAMOTIDINE 20 MG/2 ML VIAL IV PUSH SCH (20:48)
[2017-02-22] MEDS: SODIUM CHLORIDE 0.9% FLUSH 10 ML FLUSH IV FLUSH SCH (20:49)
[2017-02-22] MEDS: DOCUSATE SODIUM 50 MG/SENNA 8.6 MG TAB PO SCH (20:49)
[2017-02-22] MEDS: PROPRANOLOL HCL 10 MG TAB J-TUBE SCH (20:49)
[2017-02-22] MEDS: HEPARIN SODIUM - SQ 10,000 UNITS/ML VIAL SQ SCH (20:50)
[2017-02-22] MEDS ORDERED: PHENobarbital ELIX 20 MG/5 ML CUP J-TUBE SCH (21:00)
[2017-02-22] MEDS: PHENobarbital ELIX 20 MG/5 ML CUP J-TUBE SCH (22:43)
[2017-02-23] VITALS (26 sets, daily range): BP systolic 88–106; BP diastolic 56–70; PULSE 74–114; RESP 16–24; TEMP 98–99.5; O2SAT 83–100
[2017-02-23] MEDS: SODIUM CHLOR 0.9% 1000 ML INJ 1,000 ML IV SCH ×2 (03:55→13:50)
[2017-02-23] MEDS: INSULIN NovoLIN REGULAR SUPPLEMENTAL SCALE SQ SCH ×6 (04:00→20:00)
[2017-02-23] MEDS: CHLORHEXIDINE GLUCONATE 2 % 1 PACK (2 CLOTHS) TOP SCH (04:00)
[2017-02-23] MEDS: RESP: ALBUTEROL 2.5 MG/IPRATROPIUM 0.5 MG NEB (SCH) INH ×6 (04:25→23:56)
[2017-02-23 04:29] LABS: AUTOMATED NEUTROPHIL # 12.9 TH/MM3 (1.8-7.7); BASOPHIL % 0.1 % (0.0-2.0); HEMATOCRIT 37.5 % (35.0-46.0); HEMOGLOBIN 12.3 GM/DL (11.6-15.3); LYMPH % 7.5 % (9.0-44.0); LYMPHOCYTE # 1.1 TH/MM3 (1.0-4.8); MEAN CELL VOLUME 87.1 FL (80.0-100.0); MEAN CORPUSCULAR HEMOGLOBIN 28.6 PG (27.0-34.0); MEAN CORPUSCULAR HGB CONC 32.8 % (32.0-36.0); MEAN PLATELET VOLUME 12.6 FL (7.0-11.0); MONO % 5.3 % (0.0-8.0); MONOCYTE # 0.8 TH/MM3 (0-0.9); NEUT % 87.1 % (16.0-70.0); PLATELET COUNT 140 TH/MM3 (150-450); RED CELL DISTRIBUTION WIDTH 14.5 % (11.6-17.2); WHITE BLOOD COUNT 14.9 TH/MM3 (4.0-11.0)
[2017-02-23 04:40] LABS: ALT (GPT) 37 U/L (10-53); AST (GOT) 15 U/L (15-37); BICARBONATE 25.3 MEQ/L (21.0-32.0); BLOOD UREA NITROGEN 11 MG/DL (7-18); CALCIUM 7.9 MG/DL (8.5-10.1); CHLORIDE 109 MEQ/L (98-107); CREATININE 0.31 MG/DL (0.50-1.00); GLOMERULAR FILTRATION RATE 247 ML/MIN (>89); GLUCOSE,RANDOM 142 MG/DL (74-106); MAGNESIUM 2.3 MG/DL (1.5-2.5); SODIUM (NA) 142 MEQ/L (136-145)
--- NOTE | 2017-02-23 04:47 | RADRPT ---
EXAM DATE/TIME: 02/23/2017 03:12 [place] COMPARISON: CHEST SINGLE AP, February 22, 2017, 13:36. INDICATIONS : Shortness of breath, possible pulmonary disease. MEDICAL HISTORY : Renal calculi. Osteoarthritis. Cerebral palsy Seizures Asthma SURGICAL HISTORY : Cholecystectomy. Right breast biopsy Right nephrostomy ENCOUNTER: Subsequent ACUITY: 2 days PAIN SCORE: Non-responsive. LOCATION: Bilateral chest FINDINGS: A single view of the chest demonstrates the lungs to be symmetrically aerated without evidence of mas s, infiltrate or effusion. The cardiomediastinal contours are unremarkable. Osseous structures are intact. CONCLUSION: No acute disease. Troy Hammond MD on February 23, 2017 at 4:45 Board Certified Radiologist. This report was verified electronically.
[2017-02-23 04:49] LABS: ALKALINE PHOSPHATASE 144 U/L (45-117); PHOSPHORUS 3.2 MG/DL (2.5-4.9); TOTAL BILIRUBIN ADULT 0.2 MG/DL (0.2-1.0); TOTAL PROTEIN 6.9 GM/DL (6.4-8.2)
[2017-02-23] MEDS: BACLOFEN 10 MG TAB PO SCH ×2 (05:37→18:40)
[2017-02-23] MEDS: clonazePAM 0.5 MG TAB PO SCH ×4 (05:37→22:25)
[2017-02-23] MEDS: SULFAMETHOXAZOLE-TRIMETHOPRIM 400-80 MG TAB PO SCH ×2 (05:37→18:40)
[2017-02-23] MEDS: methylPREDNISolone SOD SUCC 40 MG/1 ML VIAL IV PUSH SCH ×3 (05:38→22:24)
[2017-02-23] MEDS ORDERED: PHENobarbital ELIX 20 MG/5 ML CUP J-TUBE SCH (06:00)
[2017-02-23] MEDS: PHENobarbital ELIX 20 MG/5 ML CUP J-TUBE SCH ×3 (06:10→22:31)
[2017-02-23] MEDS: DOCUSATE SODIUM 50 MG/SENNA 8.6 MG TAB PO SCH ×2 (08:16→22:25)
[2017-02-23] MEDS: FAMOTIDINE 20 MG/2 ML VIAL IV PUSH SCH ×2 (08:16→22:25)
[2017-02-23] MEDS: SODIUM CHLORIDE 0.9% FLUSH 10 ML FLUSH IV FLUSH SCH ×2 (08:16→22:24)
[2017-02-23] MEDS: HEPARIN SODIUM - SQ 10,000 UNITS/ML VIAL SQ SCH ×2 (08:16→22:24)
[2017-02-23] MEDS: ARTIFICIAL TEARS OPTH SOLN 15 ML BTL EACH EYE SCH ×3 (08:16→18:00)
[2017-02-23] MEDS: PROPRANOLOL HCL 10 MG TAB J-TUBE SCH ×2 (08:16→22:25)
[2017-02-23] MEDS: METOCLOPRAMIDE HCL 10 MG TAB J-TUBE SCH ×3 (08:18→18:41)
[2017-02-23] MEDS ORDERED: clonazePAM 1 MG TAB J-TUBE SCH (09:00)
[2017-02-23] MEDS ORDERED: INFLUENZA VIRUS VACCINE (QUADRIVALENT) 0.5 ML SYR IM ONE (10:00)
[2017-02-23] MEDS ORDERED: PNEUMOCOCCAL POLYVALENT INJ 25 MCG/0.5 ML SYR IM ONE (10:00)
--- NOTE | 2017-02-23 10:06 | HHI.PR ---
Subjective Patient symptoms today Pt seen and examined. Better today. Now on 3L with stats 95% and above. On CPAP overnight; now off. Objective Vital Signs Vital Signs Date Time Temp Pulse Resp B/P (MAP) Pulse Ox O2 Delivery O2 Flow Rate FiO2 02/23/17 09:00 98 02/23/17 08:31 99 3.00 02/23/17 08:28 95 3.00 02/23/17 08:00 90 02/23/17 08:00 99.5 90 21 94/56 (69) 96 02/23/17 07:30 92 16 98/58 (71) 95 02/23/17 07:00 92 23 93/56 (68) 95 02/23/17 07:00 92 02/23/17 06:00 84 02/23/17 04:25 96 40 02/23/17 04:00 76 02/23/17 04:00 98.0 74 20 92/58 (69) 98 02/23/17 02:00 80 02/23/17 00:00 92 02/23/17 00:00 98.1 97 19 99/62 (74) 98 02/22/17 23:59 96 40 18 22:00 98 18 20:00 118 18 20:00 118 02/22/17 20:00 98.4 118 19 95/58 (70) 100 18 19:30 99 40 18 18:30 113 18 18:00 121 18 17:30 125 25 122/75 (91) 98 18 17:30 125 18 17:00 109 26 98/61 (73) 95 18 17:00 109 18 16:40 94 55 18 16:32 104 26 104/60 (75) 93 18 16:00 98.3 93 22 96/56 (69) 97 18 16:00 93 18 15:51 91 18 15:51 91 22 95/63 (74) 97 02/22/17 15:15 99.3 97 24 106/64 (78) 91 Bi-Pap 60 02/22/17 15:00 93 30 109/65 (80) 96 Bi-Pap 60 02/22/17 14:58 Bi-Pap 60 02/22/17 14:45 92 30 114/66 (82) 98 Bi-Pap 100 02/22/17 14:30 97 26 113/75 (88) 98 Bi-Pap 100 02/22/17 14:15 96 26 122/75 (91) 98 Bi-Pap 100 02/22/17 14:00 94 23 113/70 (84) 98 Bi-Pap 100 02/22/17 13:55 96 100 02/22/17 13:52 Bi-Pap 100 02/22/17 13:50 Bi-Pap 50 02/22/17 13:45 98 22 111/67 (82) 95 Ambu Bag 100 02/22/17 13:30 97 20 119/78 (92) 89 Simple Mask 8 02/22/17 13:15 96 19 107/67 (80) 93 Nasal Cannula 5 02/22/17 13:00 84 14 104/66 (79) 91 Nasal Cannula 4 02/22/17 12:45 86 16 110/71 (84) 94 Nasal Cannula 2 02/22/17 12:40 Nasal Cannula 2 02/22/17 12:32 Nasal Cannula 4 02/22/17 12:30 81 14 119/76 (90) 100 Nasal Cannula 4 02/22/17 12:15 65 12 119/72 (88) 99 Nasal Cannula 4 02/22/17 12:04 98.6 74 12 120/76 (91) 99 Nasal Cannula 4 Intake & Output 02/23/17 02/23/17 07:00 19:00 Intake Total 1453 ml Output Total 0 ml Balance 1453 ml IV Total 1000 ml Tube Feeding 353 ml Other 100 ml Stool Total 0 ml # Voids 2 Result Diagram: 02/23/17 0320 02/23/17 0320 Imaging Last 24 hours Impressions Chest X-Ray 02/23/17 0000 Signed Impressions: Service Date/Time: February 03:12 - CONCLUSION: No acute disease. Troy Hammond MD Objective Remarks Lungs: BS bilateral Abd:soft,nt,nd Voiding into diaper Medications and IVs Current Medications Medications (Trade) Dose Ordered Sig/Titus Route Start Time Stop Time Status Last Admin Lactated Ringer's 1,000 ml @ 30 mls/hr Q24H PRN IV 02/22/17 08:30 02/25/17 08:29 02/22/17 09:00 Sodium Chloride 500 ml @ 30 mls/hr [id number] PRN IV 02/22/17 08:30 02/25/17 08:29 (Lopressor) 25 mg PHOTONICS TECHNICIAN PRN PO 02/22/17 08:30 02/25/17 08:29 (Betadine 5% Antisepsis Kit) 1 applic PHOTONICS TECHNICIAN PRN EACH NARE 02/22/17 08:30 02/25/17 08:29 02/22/17 09:15 (Chlorhexidine 2% Cloth) 3 pack PHOTONICS TECHNICIAN PRN TOPICAL 02/22/17 08:30 02/25/17 08:29 02/22/17 08:00 Cefazolin Sodium 1000 mg/Sodium Chloride 100 ml @ 200 mls/hr PHOTONICS TECHNICIAN IV 02/22/17 08:30 02/25/17 08:29 Miscellaneous Information ALL NURSING DEPARTME... UNSCH PRN .XX 02/22/17 12:05 02/23/17 12:04 (Morphine Inj) 1 mg Q3H PRN IV 02/22/17 13:15 (Tylenol 650 Mg/ 20 ml Liq) 650 mg Q4H PRN G-TUBE 02/22/17 13:15 (KlonoPIN) 0.5 mg Q6H PO 02/22/17 17:00 02/23/17 05:37 (Lioresal) 10 mg Q12H PO 02/22/17 17:00 02/23/17 05:37 (Bactrim 400-80 Mg) 1 tab Q12H PO 02/22/17 17:00 02/23/17 05:37 Sodium Chloride 1,000 ml @ 84 mls/hr [id number] IV 02/22/17 16:00 02/23/17 03:55 (NS Flush) 2 ml UNSCH PRN IV FLUSH 02/22/17 15:30 (NS Flush) 2 ml BID IV FLUSH 02/22/17 21:00 02/23/17 08:16 (Pepcid Inj) 20 mg Q12HR IV PUSH 02/22/17 21:00 02/23/17 08:16 (Tears Naturale Opth Soln) 1 drop TID EACH EYE 02/22/17 18:00 02/23/17 08:16 (Zofran Inj) 4 mg Q6H PRN IV PUSH 02/22/17 15:30 (Duoneb Neb) 1 ampule Q4HR NEB INH 02/22/17 16:00 02/23/17 08:30 (Albuterol Neb) 2.5 mg Q2HR NEB PRN INH 02/22/17 15:30 Miscellaneous Information 1 Q361D XX 02/22/17 15:30 (Chlorhexidine 2% Cloth) 3 pack Taper DAILY@04 TOP 02/23/17 04:00 02/19/18 03:59 (Chlorhexidine 2% Cloth) 3 pack UNSCH PRN TOP 02/22/17 15:30 (Rosa-Colace) 1 tab BID PO 02/22/17 21:00 02/23/17 08:16 (Milk Of Magnesia Liq) 30 ml Q12H PRN PO 02/22/17 15:30 (Senokot) 17.2 mg Q12H PRN PO 02/22/17 15:30 (Dulcolax Supp) 10 mg DAILY PRN RECTAL 02/22/17 15:30 (Lactulose Liq) 30 ml DAILY PRN PO 02/22/17 15:30 (SoluMEDROL INJ) 40 mg Q8HR IV PUSH 02/22/17 16:00 02/23/17 05:38 (Reglan) 5 mg TIDAC J-TUBE 02/22/17 17:00 02/23/17 08:18 (Inderal) 10 mg BID J-TUBE 02/22/17 21:00 02/23/17 08:16 (PHENobarbital LIQ) 60 mg 2100 J-TUBE 02/22/17 21:00 02/22/17 22:43 (PHENobarbital LIQ) 30 mg DAILY@0700 J-TUBE 02/23/17 07:00 02/23/17 06:10 (PHENobarbital LIQ) 45 mg 1500 J-TUBE 02/23/17 15:00 (Pill Splitter) 1 ea UNSCH PRN OTHER 02/22/17 15:45 (Heparin Inj) 5,000 units Q12HR SQ 02/22/17 21:00 02/23/17 08:16 (Tylenol 650 Mg/ 20 ml Liq) 650 mg Q6H PRN J-TUBE 02/22/17 16:15 (D50w (Vial) Inj) 50 ml UNSCH PRN IV PUSH 02/22/17 16:15 (Glucagon Inj) 1 mg UNSCH PRN OTHER 02/22/17 16:15 (NovoLIN R SUPPLEMENTAL SCALE) 1 Q4HR SQ 02/22/17 20:00 Assessment and Plan Assessment and Plan S/P Left ESWL yesterday with respiratory compromise post procedure Respiratory status improving Transfer out of MICU per occasional caregiver. Tc Lucas DO Feb 23, 2017 10:06
--- NOTE | 2017-02-23 12:57 | HHI.CCPN ---
Subjective Remarks/Hospital Course This is a 31-year-old female. Date of admission 02/22/2017. Date of consultation 02/22/2017. Past medical she includes remote palsy, asthma, seizure disorder NOS, gastroesophageal reflux disease, normocytic anemia, chronic constipation, stage IV coccyx decubitus ulcer, urinary incontinence, and recurrent nephrolithiasis. She previously has had a right nephrostomy tube placed in ESWL bilaterally. She has had no complications with any previous surgical procedures. Today, patient had left extracorporeal shockwave lithotripsy and cystoscopy, results of the scan left renal calculi with bladder debris versus bladder stone. Patient had 300 cc crystalloid in. EBL was 0. 250 cc urine output. Patient had LMA #3 placed in the procedure. In PACU, upon removal of LMA patient desaturated with rhonchorous breath sounds. No stridor was appreciated per report. Not on my examination on evaluation patient is well. Follow-up chest x-ray revealed no acute cardiopulmonary findings. Patient was placed on noninvasive ventilation settings 8 at 100%. Oxygenating well post settings as above. Currently being weaned down. Due to her tenuous respiratory status we were asked to evaluate by Dr. Lucas for acute postoperative respiratory failure 02/23 Patient is on 2L oxygen with good sats. Afebrile. Objective Vital Signs Date Time Temp Pulse Resp B/P (MAP) Pulse Ox O2 Delivery O2 Flow Rate FiO2 02/23/17 11:33 95 Nasal Cannula 2.00 02/23/17 11:32 21 02/23/17 09:00 98 02/23/17 08:00 99.5 21 94/56 (69) Intake and Output 02/23/17 02/23/17 02/24/17 08:00 16:00 00:00 Intake Total 1453 ml Output Total 0 ml Balance 1453 ml Result Diagram: 02/23/17 0320 02/23/17 0320 Other Results Laboratory Tests Test 02/22/17 14:34 02/22/17 16:31 02/23/17 03:20 Blood Gas Puncture Site RT RADIAL Blood Gas Patient Temperature 98.6 Blood Gas HCO3 25 mmol/L Blood Gas Base Excess -0.3 mmol/L Blood Gas Oxygen Saturation 98 % Arterial Blood pH 7.36 Arterial Blood Partial Pressure CO2 45 mmHg Arterial Blood Partial Pressure O2 257 mmHg Arterial Blood Oxygen Content 20.1 Vol % Arterial Blood Carboxyhemoglobin 0.7 % Arterial Blood Methemoglobin 1.1 % Blood Gas Hemoglobin 14.2 G/DL Oxygen Delivery Device BiPAP 01/13 RR10 Blood Gas Inspired Oxygen 100 % Blood Urea Nitrogen 8 MG/DL 11 MG/DL Creatinine 0.25 MG/DL 0.31 MG/DL Random Glucose 85 MG/DL 142 MG/DL Calcium Level 8.2 MG/DL 7.9 MG/DL Magnesium Level 2.3 MG/DL 2.3 MG/DL Sodium Level 140 MEQ/L 142 MEQ/L Potassium Level 4.2 MEQ/L 3.7 MEQ/L Chloride Level 107 MEQ/L 109 MEQ/L Carbon Dioxide Level 26.7 MEQ/L 25.3 MEQ/L Phosphorus Level 3.7 MG/DL 3.2 MG/DL Anion Gap 6 MEQ/L 8 MEQ/L Estimat Glomerular Filtration Rate 316 ML/MIN 247 ML/MIN B-Type Natriuretic Peptide 8 PG/ML White Blood Count 14.9 TH/MM3 Red Blood Count 4.30 MIL/MM3 Hemoglobin 12.3 GM/DL Hematocrit 37.5 % Mean Corpuscular Volume 87.1 FL Mean Corpuscular Hemoglobin 28.6 PG Mean Corpuscular Hemoglobin Concent 32.8 % Red Cell Distribution Width 14.5 % Platelet Count 140 TH/MM3 Mean Platelet Volume 12.6 FL Neutrophils (%) (Auto) 87.1 % Lymphocytes (%) (Auto) 7.5 % Monocytes (%) (Auto) 5.3 % Eosinophils (%) (Auto) 0.0 % Basophils (%) (Auto) 0.1 % Neutrophils # (Auto) 12.9 TH/MM3 Lymphocytes # (Auto) 1.1 TH/MM3 Monocytes # (Auto) 0.8 TH/MM3 Eosinophils # (Auto) 0.0 TH/MM3 Basophils # (Auto) 0.0 TH/MM3 CBC Comment DIFF FINAL Differential Comment Total Protein 6.9 GM/DL Albumin 3.0 GM/DL Alkaline Phosphatase 144 U/L Aspartate Amino Transf (AST/SGOT) 15 U/L Alanine Aminotransferase (ALT/SGPT) 37 U/L Total Bilirubin 0.2 MG/DL Phenobarbital Level 32.9 MCG/ML Imaging Last Impressions Chest X-Ray 02/23/17 0000 Signed Impressions: Service Date/Time: February 03:12 - CONCLUSION: No acute disease. Troy Hammond MD Abdomen X-Ray 02/22/17 0757 Signed Impressions: Service Date/Time: Wednesday, February 22, 2017 08:28 - CONCLUSION: Moderate dense stool throughout the colon. Emmanuel Gaxiola MD Objective Remarks GENERAL: 31-year-old female with cerebral palsy lying in bed in NAD SKIN: Warm and dry. Stage IV coccyx decubitus ulcer HEAD: Atraumatic. Normocephalic. EYES: Pupils equal and round about 3 mm bilaterally and reactive. No scleral icterus. No injection or drainage. ENT: No nasal bleeding or discharge. Mucous membranes pink and moist. There is no oropharyngeal edema. There is no tongue swelling NECK: Trachea midline. No JVD. CARDIOVASCULAR: Regular rate and rhythm. S1, S2. No S4 without murmur RESPIRATORY: Coarse rhonchorous breath sounds appreciated in the anterior lung fleming. No wheezing. No stridor is appreciated GASTROINTESTINAL: Abdomen soft, non-tender, nondistended. Hepatic and splenic margins not palpable. MUSCULOSKELETAL: Extremities without clubbing, cyanosis, or edema. No obvious deformities. NEUROLOGICAL: Awake and alert. No obvious cranial nerve deficits. Motor grossly within normal limits. Five out of 5 muscle strength in the arms and legs. Normal speech. PSYCHIATRIC: Appropriate mood and affect; insight and judgment normal. A/P Assessment and Plan Neuro/Psych: Cerebral palsy Seizure disorder NOS Acetaminophen liquid 650 mg by J-tube every 6 hours when necessary fever Continue phenobarbital 32.4 mg 1 tablet at 0700, 1.5 tablets at 1502 tablets at 2100 Continue clonazepam 0.5 mg by tube Q6 Seizure precautions CV: Hypertension Monitor HR and BP keep MAP>65mmHg Continue propranolol 10 mg by mouth twice a day Currently normal saline at 84 cc an hour. Resp: Acute postoperative respiratory failure-Resolved Mild intermittent asthma Continue with oxygen keep sat >92% Bronchodilators GI: Moderate protein calorie malnutrition Gastroesophageal reflux disease Chronic constipation Continue tube feeds via PEG tube-Jevity 1.5 70 cc an hour Famotidine for GI prophylaxis. On ranitidine 150 mg as needed at home Docusate sodium/senna 1 tablet twice a day for bowel regimen : Recurrent nephrolithiasis status post left extracorporeal shockwave lithotripsy and cystoscopy Urinary incontinence No indication for John catheter Dr. Lucas/urology following Endo: Sliding-scale insulin if indicated to maintain euglycemia Renal: History of right nephrostomy tube Monitor renal function, electrolytes replacement as needed Heme: History of anemia Thrombocytopenia Monitor CBC daily. Follow trends No indication for transfusion of blood products at this time ID: Currently on sulfamethoxazole, trimethaphan 400/80 one tablet twice a day Check UA MSK: Stage IV coccyx ulcer Osteoarthritis Wound care evaluation and treat Access - Utilize peripheral IV. Prophylaxis - GI - famotidine - DVT - SCD/heparin subcutaneous Will transfer to floor and consult [facility] for medical management Level 2 Veronica Root MD Feb 23, 2017 12:57
--- NOTE | 2017-02-23 12:57 | PD.WCN.NOT ---
Wound Consult Description: Received consult from Doctor Simba regarding pressure ulcer of coccyx Communicated with: RN Shelley [facility] and Doctor Cottrell Recommendation: Please continue wound care as ordered from outpatient wound care physician as follows: Cleanse wound coccyx with normal saline and pat dry. Soak with Dakin' s half strength or 0.25% for for 10 minutes. After soaking apply Collagen dressing to wound bed and the cover with Aquacel. Then cover with a bordered gauze dressing. Lastly apply ABD pad over bordered gauze secured with paper tape. Please apply skin prep before applying adhesives to skin. Family insists on doing wound care themselves and provide supplies from home, as we do not carry Aquacel or collagen dressings. Will have RN taking care of patient present during dressing changes for wound assessment purposes. Please Vocera wound care nurse if wound deteriorates. Please turn patient every 2 hours to offload pressure from coccyx area. Additional Information: Patient seen on 5th floor [facility] for coccyx pressure ulcer evaluation. Family in room, had already finished dressing change. Patient is contracted and laying on Meli low ariloss standard [facility] bed. Family is in room at all times and are very attentive and involved with patient's care. Peeled back dressing in place to reveal wound to coccyx that appears to be stage 4 pressure injury. Wound measures 1.2cm x 1.2cm x ~1cm. Wound bed presents with ~95% beefy red tissue and ~5% white tissue at the base of wound. Reapplied dressing back in place and reinforced with paper tape.Family is turning patient every 2 hours and changing briefs . Wound appears stable with unremarkable periwound. Patient sees out patient wound care Doctor, who ordered current dressings in place.Ok to continue dressing changes as ordered by out patient wound care with supplies from home. Ostomy Date of Surgery: Feb 22, 2017 Ayah Maldonado [facility] Feb 23, 2017 12:57
--- NOTE | 2017-02-23 22:28 | EKG ---
Date Performed: 02/22/2017 Time Performed: 17:13:18 PTAGE: 31 years EKG: SINUS TACHYCARDIA WITH SHORT RI INTERVAL NONSPECIFIC T-WAVE ABNORMALITY ABNORMAL RHYTHM ECG NO PREVIOUS TRACING DOCTOR: Nadir Padron Interpretating Date/Time 02/23/2017 22:26:56
[2017-02-24 00:45] VITALS: BP 105/60; PULSE 110; RESP 19; TEMP 98.9; O2SAT 94
[2017-02-24] MEDS: RESP: ALBUTEROL 2.5 MG/IPRATROPIUM 0.5 MG NEB (SCH) INH ×4 (03:51→15:44)
[2017-02-24] MEDS: INSULIN NovoLIN REGULAR SUPPLEMENTAL SCALE SQ SCH ×4 (04:00→11:48)
[2017-02-24] MEDS: CHLORHEXIDINE GLUCONATE 2 % 1 PACK (2 CLOTHS) TOP SCH (04:00)
[2017-02-24] MEDS: SODIUM CHLOR 0.9% 1000 ML INJ 1,000 ML IV SCH (04:18)
[2017-02-24 05:30] VITALS: BP 99/55; PULSE 120; RESP 19; TEMP 97.2; O2SAT 94
[2017-02-24] MEDS: PHENobarbital ELIX 20 MG/5 ML CUP J-TUBE SCH ×2 (06:42→16:16)
[2017-02-24] MEDS: methylPREDNISolone SOD SUCC 40 MG/1 ML VIAL IV PUSH SCH ×2 (06:42→16:12)
[2017-02-24] MEDS: clonazePAM 0.5 MG TAB PO SCH ×2 (06:43→11:45)
[2017-02-24] MEDS: SULFAMETHOXAZOLE-TRIMETHOPRIM 400-80 MG TAB PO SCH (06:43)
[2017-02-24] MEDS: BACLOFEN 10 MG TAB PO SCH (06:43)
[2017-02-24] MEDS: METOCLOPRAMIDE HCL 10 MG TAB J-TUBE SCH ×2 (06:44→11:45)
[2017-02-24 08:00] VITALS: BP 97/53; PULSE 114; RESP 16; TEMP 98.5; O2SAT 95; O2SAT 96
--- NOTE | 2017-02-24 08:50 | HHI.PR ---
Subjective Patient symptoms today Pt seen and examined. Mother at bedside. No events last PM. No fever. Maybe having some pain after ESWL. Objective Vital Signs Vital Signs Date Time Temp Pulse Resp B/P (MAP) Pulse Ox O2 Delivery O2 Flow Rate FiO2 02/24/17 08:00 95 02/24/17 05:30 97.2 120 19 99/55 (70) 94 02/24/17 00:45 98.9 110 19 105/60 (75) 94 02/23/17 21:22 96 Nasal Cannula 2.00 02/23/17 20:30 99.4 112 19 103/59 (74) 94 02/23/17 19:00 Room Air 2.00 21 02/23/17 16:00 99.3 114 16 106/70 (82) 93 02/23/17 14:00 102 02/23/17 13:59 Room Air 02/23/17 13:30 99 17 97/59 (72) 94 02/23/17 13:30 99 02/23/17 13:00 101 02/23/17 13:00 101 24 88/58 (68) 98 02/23/17 12:30 97 17 90/62 (71) 94 02/23/17 12:30 97 02/23/17 12:00 98.6 94 19 93/60 (71) 95 02/23/17 12:00 94 02/23/17 11:33 95 Nasal Cannula 2.00 02/23/17 11:32 90 21 02/23/17 11:30 91 02/23/17 11:30 91 19 96/67 (77) 92 02/23/17 11:00 89 02/23/17 11:00 89 18 95/66 (76) 83 02/23/17 10:30 101 02/23/17 10:30 101 20 89/59 (69) 99 02/23/17 10:00 100 02/23/17 10:00 100 18 88/57 (67) 100 02/23/17 09:30 100 16 94/59 (71) 92 02/23/17 09:00 98 02/23/17 09:00 96 Nasal Cannula 3.00 02/23/17 09:00 98 19 94/59 (71) 94 Intake & Output 02/24/17 02/24/17 06:59 18:59 Intake Total 0 ml Balance 0 ml Intake Oral 0 ml # Voids 3 # Bowel Movements 0 Result Diagram: 02/23/17 03202/[id number]/17319 Objective Remarks Lungs: BS bilateral Abd:soft,nt,nd Voiding into diaper 02/24 Abd:soft,nt,nd Voiding into diaper Medications and IVs Current Medications Medications (Trade) Dose Ordered Sig/Titus Route Start Time Stop Time Status Last Admin Lactated Ringer's 1,000 ml @ 30 mls/hr Q24H PRN IV 02/22/17 08:30 02/25/17 08:29 02/22/17 09:00 Sodium Chloride 500 ml @ 30 mls/hr [id number] PRN IV 02/22/17 08:30 02/25/17 08:29 (Lopressor) 25 mg SECURITY TESTER PRN PO 02/22/17 08:30 02/25/17 08:29 (Betadine 5% Antisepsis Kit) 1 applic SECURITY TESTER PRN EACH NARE 02/22/17 08:30 02/25/17 08:29 02/22/17 09:15 (Chlorhexidine 2% Cloth) 3 pack SECURITY TESTER PRN TOPICAL 02/22/17 08:30 02/25/17 08:29 02/22/17 08:00 Cefazolin Sodium 1000 mg/Sodium Chloride 100 ml @ 200 mls/hr SECURITY TESTER IV 02/22/17 08:30 02/25/17 08:29 (Morphine Inj) 1 mg Q3H PRN IV 02/22/17 13:15 02/24/17 04:19 (Tylenol 650 Mg/ 20 ml Liq) 650 mg Q4H PRN G-TUBE 02/22/17 13:15 (KlonoPIN) 0.5 mg Q6H PO 02/22/17 17:00 02/24/17 06:43 (Lioresal) 10 mg Q12H PO 02/22/17 17:00 02/24/17 06:43 (Bactrim 400-80 Mg) 1 tab Q12H PO 02/22/17 17:00 02/24/17 06:43 Sodium Chloride 1,000 ml @ 84 mls/hr [id number] IV 02/22/17 16:00 02/24/17 04:18 (NS Flush) 2 ml UNSCH PRN IV FLUSH 02/22/17 15:30 (NS Flush) 2 ml BID IV FLUSH 02/22/17 21:00 02/23/17 22:24 (Pepcid Inj) 20 mg Q12HR IV PUSH 02/22/17 21:00 02/23/17 22:25 (Tears Naturale Opth Soln) 1 drop TID EACH EYE 02/22/17 18:00 02/23/17 18:00 (Zofran Inj) 4 mg Q6H PRN IV PUSH 02/22/17 15:30 (Duoneb Neb) 1 ampule Q4HR NEB INH 02/22/17 16:00 02/24/17 07:58 (Albuterol Neb) 2.5 mg Q2HR NEB PRN INH 02/22/17 15:30 Miscellaneous Information 1 Q361D XX 02/22/17 15:30 (Chlorhexidine 2% Cloth) 3 pack Taper DAILY@04 TOP 02/23/17 04:00 02/19/18 03:59 (Chlorhexidine 2% Cloth) 3 pack UNSCH PRN TOP 02/22/17 15:30 (Rosa-Colace) 1 tab BID PO 02/22/17 21:00 02/23/17 22:25 (Milk Of Magnesia Liq) 30 ml Q12H PRN PO 02/22/17 15:30 (Senokot) 17.2 mg Q12H PRN PO 02/22/17 15:30 (Dulcolax Supp) 10 mg DAILY PRN RECTAL 02/22/17 15:30 (Lactulose Liq) 30 ml DAILY PRN PO 02/22/17 15:30 (SoluMEDROL INJ) 40 mg Q8HR IV PUSH 02/22/17 16:00 02/24/17 06:42 (Reglan) 5 mg TIDAC J-TUBE 02/22/17 17:00 02/24/17 06:44 (Inderal) 10 mg BID J-TUBE 02/22/17 21:00 02/23/17 22:25 (PHENobarbital LIQ) 60 mg 2100 J-TUBE 02/22/17 21:00 02/23/17 22:31 (PHENobarbital LIQ) 30 mg DAILY@0700 J-TUBE 02/23/17 07:00 02/24/17 06:42 (PHENobarbital LIQ) 45 mg 1500 J-TUBE 02/23/17 15:00 02/23/17 13:50 (Pill Splitter) 1 ea UNSCH PRN OTHER 02/22/17 15:45 (Heparin Inj) 5,000 units Q12HR SQ 02/22/17 21:00 02/23/17 22:24 (Tylenol 650 Mg/ 20 ml Liq) 650 mg Q6H PRN J-TUBE 02/22/17 16:15 (D50w (Vial) Inj) 50 ml UNSCH PRN IV PUSH 02/22/17 16:15 (Glucagon Inj) 1 mg UNSCH PRN OTHER 02/22/17 16:15 (NovoLIN R SUPPLEMENTAL SCALE) 1 Q4HR SQ 02/22/17 20:00 Assessment and Plan Assessment and Plan S/P Left ESWL yesterday with respiratory compromise post procedure Respiratory status improving Transfer out of MICU per cushion mat maker. 02/24 Stable s/p left ESWL with respiratory compromise post procedure O2 sats in the 93-98 range on room air Maybe having some pain s/p Left ESWL with stone passage Pain management; stable from standpoint Tc Lucas DO Feb 24, 2017 08:50
[2017-02-24] MEDS: SODIUM CHLORIDE 0.9% FLUSH 10 ML FLUSH IV FLUSH SCH (09:00)
[2017-02-24] MEDS: HEPARIN SODIUM - SQ 10,000 UNITS/ML VIAL SQ SCH (09:00)
[2017-02-24 09:09] LABS: AUTOMATED NEUTROPHIL # 3.5 TH/MM3 (1.8-7.7); BASOPHIL % 0.3 % (0.0-2.0); EOSINOPHIL % 0.1 % (0.0-4.0); HEMATOCRIT 34.5 % (35.0-46.0); HEMOGLOBIN 11.4 GM/DL (11.6-15.3); LYMPHOCYTE # 1.1 TH/MM3 (1.0-4.8); MEAN CELL VOLUME 87.8 FL (80.0-100.0); MEAN CORPUSCULAR HEMOGLOBIN 29.1 PG (27.0-34.0); MEAN CORPUSCULAR HGB CONC 33.1 % (32.0-36.0); MEAN PLATELET VOLUME 12.7 FL (7.0-11.0); MONO % 14.2 % (0.0-8.0); MONOCYTE # 0.8 TH/MM3 (0-0.9); NEUT % 65.4 % (16.0-70.0); PLATELET COUNT 135 TH/MM3 (150-450); RED BLOOD COUNT 3.93 MIL/MM3 (4.00-5.30); RED CELL DISTRIBUTION WIDTH 14.2 % (11.6-17.2); WHITE BLOOD COUNT 5.3 TH/MM3 (4.0-11.0)
[2017-02-24 09:39] LABS: BICARBONATE 23.2 MEQ/L (21.0-32.0); CALCIUM 7.9 MG/DL (8.5-10.1); CREATININE 0.18 MG/DL (0.50-1.00); MAGNESIUM 2.3 MG/DL (1.5-2.5)
[2017-02-24 09:49] LABS: PHOSPHORUS 2.1 MG/DL (2.5-4.9)
[2017-02-24] MEDS: PROPRANOLOL HCL 10 MG TAB J-TUBE SCH (11:03)
[2017-02-24] MEDS: DOCUSATE SODIUM 50 MG/SENNA 8.6 MG TAB PO SCH (11:04)
[2017-02-24] MEDS: FAMOTIDINE 20 MG/2 ML VIAL IV PUSH SCH (11:17)
[2017-02-24] MEDS: ARTIFICIAL TEARS OPTH SOLN 15 ML BTL EACH EYE SCH ×2 (11:21→11:48)
[2017-02-24 12:12] VITALS: PULSE 106
[2017-02-24 13:56] VITALS: PULSE 96
[2017-02-24 15:44] VITALS: O2SAT 95
[2017-02-24] MEDS ORDERED: SULF400T18 PO (16:09)
[2017-02-24] MEDS ORDERED: PRED5PAK PO (16:13)
--- NOTE | 2017-02-24 16:19 | HHI.DS ---
Discharge Summary Admission Date Feb 22, 2017 at 14:38 Discharge Date: Feb 24, 2017 Admitting Diagnosis Respiratory failure (1) Respiratory failure following trauma and surgery ICD Code: J95.821 - Acute postprocedural respiratory failure (2) Nephrolithiasis ICD Code: N20.0 - Calculus of kidney Status: Acute Procedures Shockwave lithotripsy Brief History - From Admission This is a 31-year-old female. Date of admission 02/22/2017. Date of consultation 02/22/2017. Past medical she includes remote palsy, asthma, seizure disorder NOS, gastroesophageal reflux disease, normocytic anemia, chronic constipation, stage IV coccyx decubitus ulcer, urinary incontinence, and recurrent nephrolithiasis. She previously has had a right nephrostomy tube placed in ESWL bilaterally. She has had no complications with any previous surgical procedures. Today, patient had left extracorporeal shockwave lithotripsy and cystoscopy, results of the scan left renal calculi with bladder debris versus bladder stone. Patient had 300 cc crystalloid in. EBL was 0. 250 cc urine output. Patient had LMA #3 placed in the procedure. In PACU, upon removal of LMA patient desaturated with rhonchorous breath sounds. No stridor was appreciated per report. Not on my examination on evaluation patient is well. Follow-up chest x-ray revealed no acute cardiopulmonary findings. Patient was placed on noninvasive ventilation settings 12/8 at 100%. Oxygenating well post settings as above. Currently being weaned down. Due to her tenuous respiratory status we were asked to evaluate by Dr. Lucas for acute postoperative respiratory failure CBC/BMP: 02/24/17 0740 02/24/17 0740 Significant Findings Laboratory Tests Test 02/22/17 09:05 02/22/17 14:34 02/22/17 16:31 02/23/17 03:20 Platelet Count 140 TH/MM3 (150-450) 140 TH/MM3 (150-450) Mean Platelet Volume 11.6 FL (7.0-11.0) 12.6 FL (7.0-11.0) Neutrophils (%) (Auto) 74.3 % (16.0-70.0) 87.1 % (16.0-70.0) Monocytes (%) (Auto) 8.6 % (0.0-8.0) Arterial Blood pH 7.36 (7.380-7.420) Arterial Blood Partial Pressure CO2 45 mmHg (38-42) Arterial Blood Partial Pressure O2 257 mmHg (61-120) Arterial Blood Oxygen Content 20.1 Vol % (12.0-20.0) Creatinine 0.25 MG/DL (0.50-1.00) 0.31 MG/DL (0.50-1.00) Calcium Level 8.2 MG/DL (8.5-10.1) 7.9 MG/DL (8.5-10.1) White Blood Count 14.9 TH/MM3 (4.0-11.0) Lymphocytes (%) (Auto) 7.5 % (9.0-44.0) Neutrophils # (Auto) 12.9 TH/MM3 (1.8-7.7) Random Glucose 142 MG/DL (74-106) Albumin 3.0 GM/DL (3.4-5.0) Alkaline Phosphatase 144 U/L (45-117) Chloride Level 109 MEQ/L (98-107) Test 02/23/17 15:00 02/24/17 07:40 Red Blood Count 3.93 MIL/MM3 (4.00-5.30) Hemoglobin 11.4 GM/DL (11.6-15.3) Hematocrit 34.5 % (35.0-46.0) Platelet Count 135 TH/MM3 (150-450) Mean Platelet Volume 12.7 FL (7.0-11.0) Monocytes (%) (Auto) 14.2 % (0.0-8.0) Creatinine 0.18 MG/DL (0.50-1.00) Calcium Level 7.9 MG/DL (8.5-10.1) Phosphorus Level 2.1 MG/DL (2.5-4.9) Chloride Level 110 MEQ/L (98-107) Imaging Last Impressions Chest X-Ray 02/23/17 0000 Signed Impressions: Service Date/Time: February 03:12 - CONCLUSION: No acute disease. Troy Hammond MD Abdomen X-Ray 02/22/17 0757 Signed Impressions: Service Date/Time: Wednesday, February 22, 2017 08:28 - CONCLUSION: Moderate dense stool throughout the colon. Emmanuel Gaxiola MD PE at Discharge GENERAL: She lying in bed. Appears comfortable. Nonverbal. Noninteractive. SKIN: Warm and dry. HEAD: Normocephalic. EYES: No scleral icterus. No injection or drainage. NECK: Supple, trachea midline. No JVD or lymphadenopathy. CARDIOVASCULAR: Regular rate and rhythm without murmurs, gallops, or rubs. RESPIRATORY: Breath sounds equal bilaterally. No accessory muscle use. GASTROINTESTINAL: Abdomen soft, non-tender, nondistended. PEG tube without any leakage. MUSCULOSKELETAL: No cyanosis, or edema. BACK: Nontender without obvious deformity. No CVA tenderness. Pt update on day of discharge Family reports that she is back to baseline. They do not feel that she is in pain. Tolerating tube feeding. No acute events per nursing. Hospital Course Patient presented with tachycardia, hypoxia after shockwave lithotripsy. Chest x-ray with no acute findings. She was started on oxygen, IV steroids with improvement. She was also treated with Bactrim for possible infection. Per family, she is back to baseline, with vitals stable. She'll be discharged home with prednisone taper, course of Bactrim to follow with primary care, as well as urology. For problem-based summary from most recent progress note, please see below.. Neuro/Psych: //Cerebral palsy //Seizure disorder NOS Acetaminophen liquid 650 mg by J-tube every 6 hours when necessary fever Continue phenobarbital 32.4 mg 1 tablet at 0700, 1.5 tablets at 1502 tablets at 2100 Continue clonazepam 0.5 mg by tube Q6 Seizure precautions CV: //Hypertension Monitor HR and BP keep MAP>65mmHg Continue propranolol 10 mg by mouth twice a day Resp: //Acute postoperative respiratory failure-Resolved //Mild intermittent asthma Continue with oxygen keep sat >92% Bronchodilators GI: //Moderate protein calorie malnutrition //Gastroesophageal reflux disease //Chronic constipation Continue tube feeds via PEG tube-Jevity 1.5 70 cc an hour Famotidine for GI prophylaxis. On ranitidine 150 mg as needed at home Docusate sodium/senna 1 tablet twice a day for bowel regimen : //Recurrent nephrolithiasis status post left extracorporeal shockwave lithotripsy and cystoscopy //Urinary incontinence No indication for John catheter Dr. Lucas/urology following. Discussed with Dr. Lucas. Dr. Lucas recommends discharge home with Bactrim complete treatment course. Follow-up in one month. Heme: //History of anemia //Thrombocytopenia -Hemoglobin and platelet stable ID: Currently on sulfamethoxazole, trimethaphan 400/80 one tablet twice a day Check UA MSK: Stage IV coccyx ulcer Osteoarthritis Wound care evaluation and treat Access - Utilize peripheral IV. Prophylaxis - GI - famotidine - DVT - SCD/heparin subcutaneous Pt Condition on Discharge: Good Discharge Disposition: Discharge Home Discharge Time: > 30 minutes Discharge Instructions DIET: Follow Instructions for: On Tube Feeding Activities you can perform: Regular-No Restrictions Follow up Referrals: PCP Follow-up - 1 Week with Vanda Mccann MD Urology - 4 Weeks with Tc Lucas DO New Medications: Prednisone (21) 5 mg tab Dose Pack (Prednisone (21) 5 mg tab Dose Pack) 5 Mg Dspk 5 MG PO DIRECTED for Inflammation, #1 DSPK 0 Refills Sulfamethoxazole/Trimethoprim (Sulfamethoxazole-Tmp Ss Tablet) 400 Mg-80 Mg Tablet 1 TAB PO Q12H for prevent infection for 8 Days, #16 TAB Continued Medications: Albuterol Neb (Albuterol Neb) 0.63 Mg/3 Ml Neb 0.63 MG NEB Q6HR NEB for SHORTNESS OF BREATH, #1 BOX 3 Refills Baclofen (Baclofen) 10 Mg Tab 15 MG J-TUBE BID PRN for MUSCLE SPASM, #60 TAB 1 Refill Bisacodyl Supp (Dulcolax Supp) 10 Mg Supp 10 MG RECTAL DAILY PRN for CONSTIPATION, #12 SUPP 0 Refills Stop when stools are regular Clonazepam (Clonazepam) 1 Mg Tab 0.5 TAB J-TUBE DIRECTED for Seizure Control, #60 TAB 2 Refills Give 0.5 tab at 6AM, Noon, 6PM, and Midnight Cyanocobalamin (Vitamin B12 Tr) 1,000 Mcg Tab 1000 MCG GT EVERY OTHER MONTH for Nutritional Supplement, BOTTLE Lactulose Liq (Lactulose Liq) 10 Gm/15 Ml Soln 15 ML PO DAILY PRN for CONSTIPATION, #1 BOTTLE 0 Refills Stop when stools are regular. Restart after 3 days without stooling. Metoclopramide (Metoclopramide) 5 Mg Tab 5 MG J-TUBE TIDAC for Gastroparesis, #90 TAB 0 Refills Oxycodone-Acetaminophen (Percocet) 5-325 mg Tab 1-2 TAB PO Q6H PRN for PAIN, #30 TAB 0 Refills Phenobarbital (Phenobarbital) 32.4 Mg Tab 32.4 MG J-TUBE DIRECTED for Control Seizures, #135 TAB 2 Refills 1 tablet AT 7:00 A.M. 1.5 (one and half) tablet AT 3:00 P.M. 2 tablet AT 11:00 P.M. Propranolol (Propranolol) 10 Mg Tab 10 MG J-TUBE BID for Tachycardia, #60 TAB 0 Refills Ranitidine (Ranitidine) 150 Mg Tab 150 MG JT BID PRN for REFLUX, #180 TAB 1 Refill Rubén Jacob MD Feb 24, 2017 16:19
[2017-02-24] MEDS ORDERED: DOCUSATE SODIUM 50 MG/SENNA 8.6 MG TAB G-TUBE ONE (16:30)
[2017-02-24] MEDS ORDERED: predniSONE 20 MG TAB G-TUBE ONE (17:15)
[2017-02-28] MEDS ORDERED: PROP10TA6 J-TUBE (08:52)
== END 2017-02-24 17:23 | disposition home or self-care (01) | DRG 691 ==
LOC: HSDC 07:36 → HSDI 14:38 → OBSVTOIN 14:38 → HIMN 15:35 → N05A 02-23 15:59
PROVIDERS: ADMIT Urology; ATTEND Urology
PROC: 5A09357 Assistance with Respiratory Ventilation, Less than 24 Consecutive Hours, Continuous Positive Airway Pressure (ICD-10-PCS; 2017-02-22)
PROC: 0TF4XZZ Fragmentation in Left Kidney Pelvis, External Approach (ICD-10-PCS; principal; 2017-02-22 10:55)
PROC: 0T9B8ZZ Drainage of Bladder, Via Natural or Artificial Opening Endoscopic (ICD-10-PCS; 2017-02-22 10:55)
DX: N20.0 Calculus of kidney (principal); J95.821 Acute postprocedural respiratory failure; L89.154 Pressure ulcer of sacral region, stage 4; E44.0 Moderate protein-calorie malnutrition; Z68.22 Body mass index [BMI] 22.0-22.9, adult; G80.9 Cerebral palsy, unspecified; G40.909 Epilepsy, unspecified, not intractable, without status epilepticus; I10 Essential (primary) hypertension; J45.909 Unspecified asthma, uncomplicated; K21.9 Gastro-esophageal reflux disease without esophagitis; M19.90 Unspecified osteoarthritis, unspecified site; K59.09 Other constipation; R32 Unspecified urinary incontinence; Z93.1 Gastrostomy status; Z87.442 Personal history of urinary calculi
CPT/HCPCS: 36600; 50590; 71045; 74018; 80048; 80053; 80184; 82805; 82948; 83735; 83880; 84100; 85025; 87641; 93005; 94002; 94003; 94640; 94664; 94667; 94668; J1644; J2270; J2920; J7030; J7120; J7613